=== PATIENT | female | born 1955 | race Caucasian/White ===

== ENCOUNTER 2020-02-23 09:05 | Outpatient (CLI) | payer OTHER, SELFPAY ==
--- NOTE | ~2020-02-23 | MM_ITS ---
EXAMINATION: MM screening iliana BI w irish HISTORY: Screening mammogram, family history of breast cancer in her mother and sister. TECHNIQUE: Craniocaudal and mediolateral oblique 3-D tomosynthesis images were obtained and synthetic 2-D images were generated. CAD analysis was submitted and interpreted. COMPARISON: 02/04/2019, 01/17/2018, 01/01/2017 BREAST PARENCHYMAL COMPOSITION: The breasts are heterogeneously dense, which may obscure small masses . FINDINGS: There is no evidence of suspicious mass, calcification, or architectural distortion to sugg est malignancy in either breast. There has been no suspicious interval change. IMPRESSION: 1. No mammographic evidence of malignancy. 2. Recommend routine screening mammography in one year. BI-RADS Category 1: Negative Reviewed, dictated and finalized at location A. ER'S LICENSE EXAMINER
== END 2020-02-23 09:06 | disposition home or self-care (01) ==
PROVIDERS: Visit Provider Obstetrics & Gynecology
DX: Z12.31 Encounter for screening mammogram for malignant neoplasm of breast (principal)
CPT/HCPCS: 77063; 77067

== ENCOUNTER 2021-05-03 08:12 | Outpatient (CLI) | payer MEDICARE, OTHER, SELFPAY ==
--- NOTE | ~2021-05-03 | MM_ITS ---
EXAMINATION: MM screening iliana BI w irish HISTORY: Screening mammogram TECHNIQUE: Craniocaudal and mediolateral oblique 3-D tomosynthesis images were obtained and synthetic 2-D images were generated. CAD analysis was submitted and interpreted. COMPARISON: 02/23/2020, 02/04/2019, 01/17/2018, 12/28/2016 bilateral screening mammogram examinations BREAST PARENCHYMAL COMPOSITION: The breasts are heterogeneously dense, which may obscure small masses . FINDINGS: There is no evidence of suspicious mass, calcification, or architectural distortion to sugg est malignancy in either breast. There has been no suspicious interval change. IMPRESSION: 1. No mammographic evidence of malignancy. 2. Recommend routine screening mammography in one year. BI-RADS Category 1: Negative Reviewed, dictated and finalized at location A. MATIC TOE LASTER
== END 2021-05-03 08:13 | disposition home or self-care (01) ==
LOC: ANHIMG 08:16
PROVIDERS: PCP Family Medicine; Visit Provider Obstetrics & Gynecology
DX: Z12.31 Encounter for screening mammogram for malignant neoplasm of breast (principal)
CPT/HCPCS: 77063; 77067

== ENCOUNTER 2021-05-09 00:05 | Day surgery (SDC) | payer MEDICARE, OTHER, SELFPAY ==
[2021-04-24 13:37] VITALS: BMI 23.8
[2021-05-09 06:20] VITALS: BP 111/69; PULSE 82; RESP 18; TEMP 36.6; O2SAT 100; BMI 24.3
[2021-05-09] MEDS: LACTATED RINGERS 1,000 ML 150 ML IV CONT (06:26)
--- NOTE | 2021-05-09 07:13 | P.PNAN_ITS ---
Anes - Initial Pre Proc Eval Procedure: Operation Date: 05/09/21 07:30 Proposed Procedures p Screening Colonoscopy - Phan Tyson MD Date/Time: 05/09/21 07:13 Surgeon: Phan Tyson MD Pre Op Diagnosis: neoplasm screening Patient Data Age: 66 Gender: F Height: 1.6 m Weight: 62.3 kg Last Vital Signs Temp 97.8 F 05/09/21 06:20 Pulse 82 05/09/21 06:20 Resp 18 05/09/21 06:20 BP 111/69 05/09/21 06:20 Pulse Ox 100 05/09/21 06:20 Allergies Allergy/AdvReac Type Severity Reaction Status Date / Time No Known Allergies Allergy Verified 05/09/21 06:18 Home Medications Medication Instructions Recorded Confirmed Type Lacto.acidophilus-Bif.animalis 1 cap PO DAILY 04/24/21 04/24/21 History [Daily Probiotic] cholecalciferol (vitamin D3) 25 mcg PO DAILY 04/24/21 04/24/21 History [Vitamin D3] rosuvastatin 10 mg PO DAILY 04/24/21 04/24/21 History Patient hx anesthesia problems: none Family hx anesthesia problems: none Results Review: All pre-operative results and documents have been reviewed as part of the pre-operative evaluation. [facility] Past Medical History Medical History (Updated 05/09/21 @ 07:14 by Earl Cr MD) Hyperlipidemia Family History Family History (Updated 10/07/15 @ 23:19 by DOCTOR UNKNOWN) Mother Hypertension Family history of lymphoma Family history of malignant neoplasm of breast in first degree relative Sibling Hypertension Family history of primary malignant neoplasm of liver Family history of malignant neoplasm of breast in first degree relative Other Cerebrovascular accident Family history of malignant neoplasm of male breast Social History Social History Smoking status: Never smoker Alcohol intake: current Drinks per week: 7 Alcohol use details: wine Living arrangements: with family Spiritual care concerns: No Anes - Eval Final PreProcedure Day of Procedure 05/09/21 07:13 Patient weight: normal Heart: regular rate and rhythm Lungs: clear to auscultation Airway: Mallampati scale class II Neurological: alert and oriented Last oral intake: >/= 8 hours ASA classification: II Emergent: no Anesthetic plan: proceed Anesthesia type and monitoring: general GIVS and standard monitoring Results Review: All pre-operative results and documents have been reviewed as part of the pre-operative evaluation. Informed Consent: The patient's anesthetic plan and its attendant risks and benefits were discussed with the patient/family/POA. Questions were solicited and answers provided to the satisfaction of the patient/family/POA.
--- NOTE | 2021-05-09 07:40 | WPDGICN ---
Assessment and Plan Assessment and plan (1) Encounter for screening colonoscopy: Code(s): Z12.11 - Encounter for screening for malignant neoplasm of colon Status: Acute Assessment and Plan: Patient presents for screening colonoscopy. Appears to be at average risk for colon polyps. Further recommendations will be given after endoscopy. GI Consult Note Consult date/time: 05/09/21 07:40 HPI: Cecile Rm is a 66 year old female Presents for screening colonoscopy. Her current weight appetite bowel movements are normal. She denies abdominal pain. She has had no bleeding. Patient's last colonoscopy was 10 years ago. Her family history is noncontributory. She presents today for neoplasia screening colonoscopy. Review of Systems Review of Systems: All systems reviewed & are unremarkable except as noted in HPI and below PMFSH Past Medical History Medical History (Updated 05/09/21 @ 07:41 by Phan Tyson MD) Hyperlipidemia Family History Family History (Updated 10/07/15 @ 23:19 by DOCTOR UNKNOWN) Mother Hypertension Family history of lymphoma Family history of malignant neoplasm of breast in first degree relative Sibling Hypertension Family history of primary malignant neoplasm of liver Family history of malignant neoplasm of breast in first degree relative Other Cerebrovascular accident Family history of malignant neoplasm of male breast Social History Social History Smoking status: Never smoker Alcohol intake: current Drinks per week: 7 Alcohol use details: wine Living arrangements: with family Spiritual care concerns: No Meds Home Medications and Allergies Home Medications Medication Instructions Recorded Confirmed Type Lacto.acidophilus-Bif.animalis 1 cap PO DAILY 04/24/21 04/24/21 History [Daily Probiotic] cholecalciferol (vitamin D3) 25 mcg PO DAILY 04/24/21 04/24/21 History [Vitamin D3] rosuvastatin 10 mg PO DAILY 04/24/21 04/24/21 History Allergies Allergy/AdvReac Type Severity Reaction Status Date / Time No Known Allergies Allergy Verified 05/09/21 06:18 Vital Signs Vital Signs - 24 hr 05/09/21 06:20 Temperature 97.8 F Pulse Rate 82 Respiratory Rate 18 Blood Pressure 111/69 Pulse Oximetry 100 Exam Narrative: Physical exam reveals patient to be alert. Vital signs stable. HEENT exam is unremarkable. Patient is anicteric. Lungs are clear to auscultation and percussion. Heart is without murmur or extra sounds. Abdominal exam bowel sounds are present soft nontender with no hepatosplenomegaly. Digital external rectal exam is normal.
[2021-05-09 07:44] VITALS: BP 98/61; PULSE 78; RESP 26; O2SAT 99
[2021-05-09 07:54] VITALS: BP 118/79; PULSE 76; RESP 13; O2SAT 100
[2021-05-09 08:04] VITALS: BP 128/86; PULSE 69; RESP 16; O2SAT 100
== END 2021-05-09 08:19 | disposition home or self-care (01) ==
PROVIDERS: PCP Family Medicine; Visit Provider Internal Medicine Gastroenterology
PROC: 0DJD8ZZ Inspection of Lower Intestinal Tract, Via Natural or Artificial Opening Endoscopic (ICD-10-PCS; CPT 45378; principal; 2021-05-09 07:30)
DX: Z12.11 Encounter for screening for malignant neoplasm of colon (principal); K63.5 Polyp of colon; K64.8 Other hemorrhoids; E78.5 Hyperlipidemia, unspecified
CPT/HCPCS: 45380; 88305; J2704; J7120

== ENCOUNTER 2022-01-25 11:09 | Outpatient (CLI) | payer MEDICARE, OTHER, SELFPAY ==
--- NOTE | ~2022-01-25 | MMUS_ITS ---
EXAMINATION: MM diagnostic iliana LT w irish, US breast LT limited HISTORY: Palpable left breast abnormality. TECHNIQUE: Additional 3-D tomosynthesis images of the left breast were performed and synthetic 2-D im ages were generated. CAD analysis was submitted and interpreted. High resolution Limited left breast ultrasound was performed. COMPARISON: Comparison to multiple prior studies sequentially, with oldest reviewed study dated 12/09. BREAST PARENCHYMAL COMPOSITION: Breast composed of scattered areas of fibroglandular density FINDINGS: MAMMOGRAPHIC FINDINGS: There are no suspicious masses, calcifications or architectural distortion in the left breast to sugg est malignancy. No significant interval change. ULTRASOUND: Limited left breast ultrasound directed to the area of palpable concern: No suspicious solid or cysti c masses are identified. IMPRESSION: 1. No evidence for malignancy in the left breast. 2. Routine yearly screening mammogram and regular clinical breast examination are recommended. BI-RADS Category 1: Negative Reviewed, dictated and finalized at location A. ERECTOR APPRENTICE IMPRESSION: 1. No evidence for malignancy in the left breast. 2. Routine yearly screening mammogram and regular clinical breast examination a re recommended. BI-RADS Category 1: Negative
== END 2022-01-25 11:10 | disposition home or self-care (01) ==
PROVIDERS: PCP Obstetrics & Gynecology; Visit Provider Obstetrics & Gynecology
DX: N60.02 Solitary cyst of left breast (principal)
CPT/HCPCS: 76642; 77061; 77065; G0279

== ENCOUNTER 2022-01-31 07:43 | Outpatient (CLI) | payer MEDICARE, OTHER, SELFPAY ==
--- NOTE | ~2022-01-31 | DEXA_ITS ---
Bone Density Report Name: MALI VILLEGAS Age: 66 Sex: Female Ethnicity: White Date of : 1955 Indication: osteopenia; prior fracture; postmenopausal Referring Provider: CHOCO, MEGGAN Whelan Study: Bone densitometry was performed. Exam Date: January 31, 2022 Accession number: [id number] Bone Density: Region BMD T-score Z-score Classification AP Spine(L1-L4) 0.874 -1.6 0.2 Osteopenia Femoral Neck (Left) 0.680 -1.5 0.0 Osteopenia Total Hip (Left) 0.755 -1.5 -0.3 Osteopenia Femoral Neck (Right) 0.593 -2.3 -0.8 Osteopenia Total Hip (Right) 0.762 -1.5 -0.2 Osteopenia Total Hip Mean 0.759 -1.5 -0.3 Osteopenia World Health Organization criteria for BMD impression classify patients as: Normal (T-score at or above -1.0), Osteopenia (T-score between -1.0 and -2.5), or Osteoporosis (T-score at or below -2.5). 10-year Fracture Risk(1): Major Osteoporotic Fracture 20% Hip Fracture 3.6% Reported Risk Factors: [place] (), Neck BMD=0.593, BMI=25.0, previous fracture (1) FRAX(R) Version 3.08. Fracture probability calculated for an untreated patient. Fracture probability may be lower if the patient has received treatment. Previous Exams: Region Exam Age BMD T-score BMD Change BMD Change Date g/cm2 vs Baseline vs Previous AP Spine (L1-L4) 01/31/2022 66 0.874 -1.6 -0.058 (-6.3%) -0.058 (-6.3%) 02/07/2016 60 0.932 -1.0 Total Hip(Left) 01/31/2022 66 0.755 -1.5 -0.022 (-2.9%) -0.022 (-2.9%) 02/07/2016 60 0.777 -1.3 Total Hip(Right) 01/31/2022 66 0.762 -1.5 -0.033 (-4.2%) -0.033 (-4.2%) 02/07/2016 60 0.795 -1.2 *Denotes significance at 95% confidence level, LSC for AP Spine = 0.022 g/cm2, LSC for Total Hip = 0.027 g/cm2 Clinical Information Provided by Patient: Has had a low trauma fracture Has used the following medications: Vitamin D Patient maximum height was 63 Menopause Age: 51 Does not regularly consume dairy products Onset of menses at age 12 Number of children 2 Impression: The patient has low bone mass, based on the Right Femoral Neck T-score. The patient has an estimated ten-year risk of hip fracture of 3.6% and an estimated ten-year risk of major fracture of 20%, based on the WHO FRAX algorithm. The patient has risk factors, including: previous fracture. The BMD for the AP Spine (L1-L4) decreased, changing by -6.3% since the last DXA exam. The BMD for the Total Hip(Right) decreased, changing by -4
== END 2022-01-31 07:44 | disposition home or self-care (01) ==
PROVIDERS: PCP Obstetrics & Gynecology; Visit Provider Family Medicine
DX: Z78.0 Asymptomatic menopausal state (principal); M85.89 Other specified disorders of bone density and structure, multiple sites
CPT/HCPCS: 77080

== ENCOUNTER 2022-07-06 07:49 | Outpatient (CLI) | payer MEDICARE, SELFPAY ==
--- NOTE | ~2022-07-06 | MM_ITS ---
EXAMINATION: MM screening iliana BI w irish HISTORY: Screening mammogram TECHNIQUE: Craniocaudal and mediolateral oblique 3-D tomosynthesis images were obtained and synthetic 2-D images were generated. CAD analysis was submitted and interpreted. COMPARISON: 01/25/2022 diagnostic left mammogram and limited left breast ultrasound examination 05/03/2021, 02/23/2020 bilateral screening mammogram examinations BREAST PARENCHYMAL COMPOSITION: The breasts are heterogeneously dense, which may obscure small masses . FINDINGS: There is no evidence of suspicious mass, calcification, or architectural distortion to sugg est malignancy in either breast. There has been no suspicious interval change. IMPRESSION: 1. No mammographic evidence of malignancy. 2. Recommend routine screening mammography in one year. BI-RADS Category 1: Negative Reviewed, dictated and finalized at location A.
== END 2022-07-06 07:50 | disposition home or self-care (01) ==
LOC: ANHIMG 07:53
PROVIDERS: Visit Provider Obstetrics & Gynecology
DX: Z12.31 Encounter for screening mammogram for malignant neoplasm of breast (principal)
CPT/HCPCS: 77063; 77067

== ENCOUNTER 2023-07-08 07:40 | Outpatient (CLI) | payer MEDICARE, SELFPAY ==
--- NOTE | ~2023-07-08 | MM_ITS ---
EXAMINATION: MM screening [facility] BI w irish HISTORY: Screening TECHNIQUE: Craniocaudal and mediolateral oblique 3-D tomosynthesis images were obtained and synthetic 2-D images were generated. CAD analysis was submitted and interpreted. COMPARISON: Comparison to multiple prior studies sequentially, with oldest reviewed study dated 11/2017. BREAST PARENCHYMAL COMPOSITION: There are scattered areas of fibroglandular density. FINDINGS: There is no evidence of suspicious mass, calcification, or architectural distortion to sugg est malignancy in either breast. There has been no suspicious interval change. IMPRESSION: 1. No mammographic evidence of malignancy. 2. Recommend routine screening mammography in one year. BI-RADS Category 1: Negative Reviewed, dictated and finalized at location B.
== END 2023-07-08 07:41 | disposition home or self-care (01) ==
PROVIDERS: Visit Provider Obstetrics & Gynecology
DX: Z12.31 Encounter for screening mammogram for malignant neoplasm of breast (principal)
CPT/HCPCS: 77063; 77067

== ENCOUNTER 2023-10-23 12:47 | Outpatient (CLI) | payer MEDICARE, SELFPAY ==
--- NOTE | ~2023-10-23 | US_ITS ---
EXAMINATION: US pelvic complete w TV DATE: 10/23/2023 13:09 INDICATION: Postmenopausal bleeding. TECHNIQUE: Multiple transabdominal and transvaginal sonographic images of the pelvis were obtained. COMPARISON: None. FINDINGS: TRANSABDOMINAL ULTRASOUND: The uterus measures 6.3 x 3.9 x 3.6 cm. There is no free fluid in the pelvis. TRANSVAGINAL ULTRASOUND: The endometrial complex measures 2 mm in thickness. The ovaries are not visualized. IMPRESSION: 1. Normal endometrial complex. Reviewed, dictated and finalized at location A.
== END 2023-10-23 12:48 ==
LOC: GOSHIMG 12:48
PROVIDERS: Visit Provider Obstetrics & Gynecology
DX: N95.0 Postmenopausal bleeding (principal)
CPT/HCPCS: 76830; 76856

== ENCOUNTER 2023-12-11 12:45 | Outpatient (CLI) | payer MEDICARE, SELFPAY ==
[2023-12-11 13:03] LABS: Hematocrit 39.6 % (37.0-47.0); Hemoglobin 12.7 g/dL (12.0-15.0); Mean Corpuscular HGB Conc 32.1 g/dl (32-36); Mean Corpuscular Hemoglobin 31.1 pg (26-34); Mean Corpuscular Volume 96.8 fl (80-100); Mean Platelet Volume 8.8 fl (7.4-10.4); Platelet Count Result 260 k/mm3 (150-375); Red Blood Count 4.09 M/mm3 (4.2-5.4); Red Cell Distribution Width 12.9 % (11.5-14.5); White Blood Count 6.9 K/mm3 (4.5-10.0)
== END 2023-12-11 12:46 | disposition home or self-care (01) ==
LOC: ANHSURGERY 12:50
PROVIDERS: PCP Family Medicine; Visit Provider Obstetrics & Gynecology
DX: N95.0 Postmenopausal bleeding (principal)
CPT/HCPCS: 36415; 85027

== ENCOUNTER 2023-12-13 04:06 | Day surgery (SDC) | payer MEDICARE, SELFPAY ==
--- NOTE | 2023-12-11 11:04 | PC.NURSE ---
Report to the Outpatient Waiting Room, entrance under the green pavilion located off [facility], at time 10 AM on date 12/13/23 . Planned Procedure Time: _1200 NOON .? Time changes happen often and if your time is changed the preop area will call you the afternoon before. - You and your visitor will be asked to self-screen and do not enter if you have any COVID symptoms. Please call surgeon if you need to reschedule. - A mask is optional within the hospital at this time. Patients may have clear liquids (water, carbonated beverages, clear teas, apple juice) until 3 hours prior to surgery( 9AM) with a maximum of 20 ounces. - No food from midnight until time of surgery and no smoking - Infants may have breast milk until 4 hours before surgery, formula 6 hours prior to surgery. - Children will be allowed to drink immediately following surgery.? If applicable, please bring a bottle or sippy cup to assist with drinking. Juice, water, soda, and popsicles are readily available.? For infants on formula, please bring formula the day of surgery.? Pacifiers are allowed. Take only the following medications with a SIP of water on the morning of surgery: ____NONE DO NOT STOP ANY OF YOUR OTHER PRESCRIPTION MEDICATIONS PRIOR TO SURGERY EXCEPT THE FOLLOWING Medications to discontinue per physician ___HOLD ALL VITAMINS AND SUPPLEMENTS 3 DAYS PRE OP.LAST DOSE 12/11/23 - Please no make-up, nail brazilian, hairspray, perfume, deodorant, or body powder the day of surgery.? No jewelry (including any body piercings) or valuables the day of surgery, leave them at home.? Please take a shower or bath the night before, or the morning of, surgery with an antibacterial soap.? Wear comfortable, loose fitting clothing.? Children are encouraged to wear pajamas. - Jewelry must be removed prior to entering the operating room.? Rings and piercings that are not removed may be cut off. - The hospital will not accept responsibility for valuables.? - Please leave all valuables, including medications, at home the day of surgery. If you are going home after surgery, a licensed solo truck driver must drive you home.? - NO public transportation without another adult if you receive anesthesia. - We recommend that an adult stay with you for 24 hours following discharge. - We also recommend that you do not drive, make important decision, drink alcoholic beverages, or take any drugs that were not prescribed by your health care provider for at least 24 hours after your discharge time. For Pediatric surgeries, we recommend two adults accompany the child home. Follow any additional instructions given to you from your surgeon. Telephone instructions given to __PATIENT and asked if any additional questions and then verbalized understanding. Patient advised to call surgeon office or pre surgery nurse liaison [phone] if any additional questions.
[2023-12-11 11:13] VITALS: BMI 23.2
--- NOTE | 2023-12-13 08:00 | PM.IMHP ---
H&P: HPI History of Present Illness Date/Time: 12/13/23 08:00 68-year-old female presents for evaluation of postmenopausal bleeding. She has been postmenopausal for years without any issues and had some bleeding over the last 2 months. Evaluation consisted of exam as well as ultrasound. Small cervical lesion was noted that was not bleeding, and ultrasound showed no fibroids endometrial thickness 2mm. she has no history of abnormal Pap smears in the past. As she has continued to have intermittent bleeding we will proceed with removal of this lesion as well as hysteroscopic exam with endometrial biopsy. Chief Complaint: Postmenopausal bleeding Review of Systems Review of Systems: All systems reviewed & are unremarkable except as noted in HPI and below PMFSH Past Medical History Medical History Hyperlipidemia Osteopenia Ovarian cyst Surgical History Surgical History H/O hemorrhoidectomy H/O tubal ligation (~1990) History of tonsillectomy (~1962) Family History Family History Mother Hypertension Family history of lymphoma Family history of malignant neoplasm of breast in first degree relative Sibling Hypertension Family history of primary malignant neoplasm of liver Family history of malignant neoplasm of breast in first degree relative Other Cerebrovascular accident Family history of malignant neoplasm of male breast Social History Social History Smoking status: Never smoker Alcohol intake: current Drinks per week: 7 Alcohol use details: wine Substance use: never Substance use type: does not use Do You Feel Safe in your Home?: Yes Lack of Transportation: No Lack of Food: Never True Current Housing: I Have Housing Concerned About Future Housing: No Difficulty Paying Gas/Electric Bills: No Difficulty Paying for Meds: No Currently Unemployed: No Education: High School Diploma/GED Difficulty w/ Childcare or Family Care: No Living arrangements: with family Additional living arrangements comments: Occupation/Education: retired Gender identity (if verbalized by the patient): Female Sexual Orientation (if Verbalized by the Patient): Straight or Heterosexual Spiritual care concerns: No Meds Home Medications and Allergies Home Medications Medication Instructions Recorded Confirmed Type Lactobacillus 1 cap PO DAILY 04/24/21 12/11/23 History acidophilus-Bifidobac.animalis 2.5 billion cell capsule (Daily Probiotic) multivitamin (Daily Multi-Vitamin 1 tablet PO DAILY 01/10/22 12/11/23 History tablet) calcium 600 mg (as 1 tablet PO DAILY 12/11/23 12/11/23 History carbonate)-vitamin D3 10 mcg (400 unit) tablet (Calcium 600 + D(3)) rosuvastatin 20 mg tablet 20 mg PO DAILY 12/11/23 12/11/23 History Allergies Allergy/AdvReac Type Severity Reaction Status Date / Time No Known Allergies Allergy Verified 12/11/23 10:58 Exam Const: General: cooperative and healthy appearing Resp: Effort & Inspection: normal respiratory effort Auscultation: clear to auscultation bilaterally Cardio: Rate: regular rate Rhythm: regular rhythm GI: Inspection: normal to inspection Auscultation: normal bowel sounds : External Female Exam: normal external appearance Speculum Exam - Vagina: normal appearance of the vagina Speculum Exam - Cervix: Cervical lesion present ( small lesion at 12:00 p.m.) Bimanual exam- vagina & uterus: normal bimanual exam Bimanual Exam- Adnexa, other: normal adnexae Assessment and Plan Assessment and plan (1) Postmenopausal bleeding: Code(s): N95.0 - Postmenopausal bleeding Status: Acute Assessment and Plan: 1. Hysteroscopy uterine curettings 2. Removal of cervic
--- NOTE | 2023-12-13 08:06 | WPDHPUPDATE1 ---
History and Physical Update Update Date/Time: 12/13/23 08:06 History and Physical has been reviewed, including an updated exam of the patient. There are NO changes in the patient's condition. Risks, benefits, and alternatives have been discussed and questions answered. Patient agrees to proceed with procedure.
[2023-12-13] MEDS: LACTATED RINGERS 1,000 ML 30 ML IV CONT (10:30)
[2023-12-13 10:45] VITALS: BP 116/67; PULSE 67; RESP 16; TEMP 36.6; O2SAT 100
--- NOTE | 2023-12-13 10:45 | WPDANESEPPF ---
Anes - Initial Pre Proc Eval Procedure: Operation Date: 12/13/23 12:00 Proposed Procedures p Hysteroscopy Dilation and Curettage, - Jerrod Foster MD s Loop Electrical Excision Procedure - Jerrod Foster MD Date/Time: 12/13/23 10:45 Surgeon: Jerrod Foster MD Pre Op Diagnosis: post menopausal bleeding, cervical dysplasia Patient Data Age: 68 Gender: F Height: 1.6 m Weight: 59.45 kg Allergies Allergy/AdvReac Type Severity Reaction Status Date / Time No Known Allergies Allergy Verified 12/11/23 10:58 Home Medications Medication Instructions Recorded Confirmed Type Lactobacillus 1 cap PO DAILY 04/24/21 12/11/23 History acidophilus-Bifidobac.animalis 2.5 billion cell capsule (Daily Probiotic) multivitamin (Daily Multi-Vitamin 1 tablet PO DAILY 01/10/22 12/11/23 History tablet) calcium 600 mg (as 1 tablet PO DAILY 12/11/23 12/11/23 History carbonate)-vitamin D3 10 mcg (400 unit) tablet (Calcium 600 + D(3)) rosuvastatin 20 mg tablet 20 mg PO DAILY 12/11/23 12/11/23 History Patient hx anesthesia problems: none Family hx anesthesia problems: none Results Review: All pre-operative results and documents have been reviewed as part of the pre-operative evaluation. [facility] Past Medical History Medical History Hyperlipidemia Osteopenia Ovarian cyst Surgical History Surgical History H/O hemorrhoidectomy H/O tubal ligation (~1990) History of tonsillectomy (~1962) Family History Family History Mother Hypertension Family history of lymphoma Family history of malignant neoplasm of breast in first degree relative Sibling Hypertension Family history of primary malignant neoplasm of liver Family history of malignant neoplasm of breast in first degree relative Other Cerebrovascular accident Family history of malignant neoplasm of male breast Social History Social History Smoking status: Never smoker Alcohol intake: current Drinks per week: 7 Alcohol use details: wine Substance use: never Substance use type: does not use Do You Feel Safe in your Home?: Yes Lack of Transportation: No Lack of Food: Never True Current Housing: I Have Housing Concerned About Future Housing: No Difficulty Paying Gas/Electric Bills: No Difficulty Paying for Meds: No Currently Unemployed: No Education: High School Diploma/GED Difficulty w/ Childcare or Family Care: No Living arrangements: with family Additional living arrangements comments: Occupation/Education: retired Gender identity (if verbalized by the patient): Female Sexual Orientation (if Verbalized by the Patient): Straight or Heterosexual Spiritual care concerns: No Anes - Eval Final PreProcedure Day of Procedure 12/13/23 10:45 Patient weight: normal Heart: regular rate and rhythm Lungs: clear to auscultation Airway: Mallampati scale class II Neurological: alert and oriented Last oral intake: >/= 8 hours ASA classification: II Emergent: no Anesthetic plan: proceed Anesthesia type and monitoring: general GIVS and standard monitoring Results Review: All pre-operative results and documents have been reviewed as part of the pre-operative evaluation. Hyperlipidemia, active pickleball player, no cp or sob. Informed Consent: The patient's anesthetic plan and its attendant risks and benefits were discussed with the patient/family/POA. Questions were solicited and answers provided to the satisfaction of the patient/family/POA.
[2023-12-13] MEDS: ACETAMINOPHEN 500 MG TABLET 1000 MG PO (10:48)
[2023-12-13] MEDS: ceFAZolin 2 GM/D5W 50 ML 2 GM/50 ML BAG IVPB (10:50)
[2023-12-13 11:25] VITALS: BP 105/64; PULSE 68; RESP 16; O2SAT 100
--- NOTE | 2023-12-13 11:32 | P.OP_ITS ---
Procedure Note - Detailed Date of Procedure 12/13/23 Pre-op Diagnosis 1. Postmenopausal bleeding 2. Cervical lesion Post-op Diagnosis Same Procedure Performed 1. Hysteroscopy with uterine curettings 2. LEEP conization Surgeon Jerrod Foster MD Anesthesia MAC Findings Small cervical lesion is noted. Hysteroscopic exam revealed adhesions, no polyps or fibroids. Atrophy noted. Description of Procedure Patient prepped and draped usual manner for this procedure. Cervix was dilated allow the hysteroscope to be placed which then did finding the findings as listed above. Shavings were obtained as a volunteer patient representative sample of all 4 quadrants. Attention was then placed to the cervix and appropriately sized LEEP instrument was obtained the transformation zone was removed as well as a small polypoid lesion on the cervix. Bed of the biopsy site was then cauterized, there was no bleeding. Patient was then sent to recovery room in stable condition. Estimated Blood Loss 10 Drains No Packing No Pathology Yes Complications No immediate complications Condition Stable Disposition PACU [facility] Billing Surgery - Charge Forward: Surgery Billing
[2023-12-13 11:55] VITALS: BP 106/66; PULSE 63; RESP 16; O2SAT 100
== END 2023-12-13 12:15 | disposition home or self-care (01) ==
PROVIDERS: PCP Family Medicine; Visit Provider Obstetrics & Gynecology
PROC: 0U5B8ZZ Destruction of Endometrium, Via Natural or Artificial Opening Endoscopic (ICD-10-PCS; CPT 58563; principal; 2023-12-13 12:00)
PROC: 0UBC7ZZ Excision of Cervix, Via Natural or Artificial Opening (ICD-10-PCS; CPT 57522; 2023-12-13 12:00)
DX: N72 Inflammatory disease of cervix uteri (principal); N88.8 Other specified noninflammatory disorders of cervix uteri; E78.5 Hyperlipidemia, unspecified
CPT/HCPCS: 57522; 58558; 88305; 88307; A9270; J0690; J2003; J2250; J2704; J3010; J7120

== ENCOUNTER 2024-08-24 07:38 | Outpatient (CLI) | payer MEDICARE, SELFPAY ==
--- NOTE | ~2024-08-24 | MM_ITS ---
EXAMINATION: MM screening iliana BI w irish HISTORY: Screening TECHNIQUE: Craniocaudal and mediolateral oblique 3-D tomosynthesis images were obtained and synthetic 2-D images were generated. CAD analysis was submitted and interpreted. COMPARISON: Comparison to multiple prior studies sequentially, with oldest reviewed study dated 01/10. BREAST PARENCHYMAL COMPOSITION: Not dense: There are scattered areas of fibroglandular density. FINDINGS: There is no evidence of suspicious mass, calcification, or architectural distortion to sugg est malignancy in either breast. There has been no suspicious interval change. IMPRESSION: 1. No mammographic evidence of malignancy. 2. Recommend routine screening mammography in one year. BI-RADS Category 1: Negative Reviewed, dictated and finalized at location A.
--- OUTSIDE RECORDS SUMMARY | 2024-08-24 07:42 | XMS_ITS | Patient Health Record ---
Author Organization 1 OF [facility] Address [address] [place] [address] Care Team Providers Care Single End Sewer Name Role Phone Enrique Romeo MD Primary Care Provider Lilia Bernard Unavailable [phone] Reason For Referral No Information Medications Medication SIG (Take, Route, Frequency, Duration) Notes Start Date End Date Status Crestor Active Social History Tobacco Use: Social History Observation Description Date Details (start date - stop date) Never Smoker NA - NA Tobacco Use/Smoking Question Answer Notes Are you a nonsmoker Problems Problem Type SNOMED Code ICD Code Onset Dates Problem Status W/U Status Risk Notes Problem [id number] Hammertoe of right foot (M20.41) Active confirmed Plan Of Treatment No Information Insurance Providers Payer Name Payer Address Payer Phone Subscriber Number Group Number Insured Name Patient Relationship to Insured Coverage Start Date Coverage End Date [employer] [address] [place] [address] [id number] [phone] Buddy Rm Spouse - patient is the spouse of the insured Medical (General) History Medical History History ICD Code High Cholesterol Surgical History Surgery Date(Month/Year)
--- OUTSIDE RECORDS SUMMARY | 2024-08-24 07:42 | XMS_ITS | Referral Summary ---
Author Organization [facility] Healthcare ELISA Care Team Providers Care Charrer Name Role Phone Enrique Romeo MD Unavailable [phone] 1 Allergies No known active allergies Medications rosuvastatin (CRESTOR) 10 mg tabletIndication s:hyperlipidemia Take 1 tablet (10 mg total) by mouth daily 90 tablet 2 04/23/2022 Active ibandronate (BONIVA) 150 mg tablet Take 1 tablet (150 mg total) by mouth every 30 (thirty) days Take in AM with glass of water prior to food, don't lie down for 30 minutes. 3 tablet 4 05/08/2022 Active Active Problems Problem Noted Date Diagnosed Date Pure hypercholesterolemia 06/07/2018 Assessment & Plan (06/07/2018 10:44 AM CDT): Cholesterol lab is reviewed and looks good and no changes needed. Tolerating the crestor very well. Immunizations Immunization Administration Dates Next Due Influenza, Quadrivalent, Spl it, Preservative Free, Intramuscular 12/13/2020,12/26/2019 Pfizer SARS-CoV-2 Monovalent Vaccination (12+ Yrs) PURPLE 06/09/2020,05/19/2020 Pneumococcal Conjugate PCV 13 07/24/2017 ZOSTER Recombinant 12/26/2019,09/21/2019 Social History Tobacco Use Types Packs/Day Years Used Date Smoking Tobacco: Never Smokeless Tobacco: Never Tobacco Cessation:Counseling Given: Not Answered Alcohol Use Standard Drinks/Week Comments Yes 3 (1 standard drink = 0.6 oz pur e alcohol) socially AUDIT-C Answer Date Recorded Q1: How often do you have a drink containing alc ohol? 2-3 times a week 11/28/2021 Q2: How many drinks containi ng alcohol do you have on a typical day when you are drinking? 1 or 2 11/28/2021 Q3: How often do you have si x or more drinks on one occasion? Never 11/28/2021 PHQ-2 Answer Date Recorded PHQ-2 Total Score (If total score is 3 or more points, staff should administer the PHQ-9) 0 11/28/2021 Personal Safety Answer Date Recorded Getting School Help Needed Not on file 03/09 Comments No Sex and Gender Information Value Date Recorded Sex Assigned at Not on file Legal Sex Female 7:10 AM PEDORTHIST Gender Identity Female 09/02/2019 7:38 AM CDT Sexual Orientation Straight 09/02/2019 7: 38 AM CDT Last Filed Vital Signs Vital Sign Reading Time Taken Comments Blood Pressure 122/86 11/28/2021 7:31 AM CDT Pulse 75 11/28/2021 7:31 AM CDT Temperature 36.3 C (97.4 F) 11/28/2021 7:31 AM CDT Respiratory Rate 18 11/28/2021 7:31 AM CDT Oxygen Saturation 97% 11/28/2021 7:31 AM CDT Inhaled Oxygen Concentration - - Weight 62.6 kg (138 lb) 11/28/2021 7:31 AM CDT Height 160 cm (5' 2.99) 11/28/2021 7:31 AM CDT Body Mass Index 24.45 11/28/2021 7:31 AM CDT Plan of Treatment Not on file Procedures Procedure Name Priority Date/Time Associated Diagnosis Comments COLONOSCOPY Routine 05/09/2021 HM MAMMOGRAPHY Routine 05/03/2021 from Last 3 Months or Most Recently Relevant to Health Maintenance Results * Colonoscopy (05/09/2021) Anatomical Region Laterality Modality Other us Historical Provider ENDOSCOPY PROCEDURES Agustina l Result * HM MAMMOGRAPHY (05/03/2021) us Historical Provider HEALTH MAINTENANCE Final Result from Last 3 Months or Most Recently Relevant to Health Maintenance Insurance MEDICARE [employer] [facility] Advance Directives For more information, please contact: [phone] Documents on File Type Date Recorded 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
--- OUTSIDE RECORDS SUMMARY | 2024-08-24 07:42 | XMS_ITS | Data Portability ---
[facility] Address [address] [place] [address] Assessment No assessment recorded. Plan of Treatment Reminders Order Date Submit Date Provider Last Modified By Organization Details Last Modified Time Details Appointments ANY 15 2024 09:00A Aida Romeo MD Not available Not available Not available Lab vitamin D, 25-hydrox y, total, serum 2024 025 [employer] [facility], [address], [place], [address], 07/04/2024 05:23:32 lipid panel, serum 2024 025 [employer] [facility], [address], [place], [address], 07/04/2024 05:23:29 CMP, serum or plasma 2024 025 [employer] [facility], [address], [place], [address], 07/04/2024 05:23:31 Referral None recorded. Procedures None recorded. Surgeries None recorded. Imaging None recorded. Medication Orders Prolia 60 mg/mL subcutane ous syringe 2023 024 [email or web address] [id number], [address] [place], [address], 12/20/2023 10:23:17 Prolia 60 mg/mL subcutane ous syringe 2023 024 [email or web address] [id number], [address] [place], [address], 07/03/2023 11:11:10 triamcino lone acetonide 40 mg/mL suspensio n for injection 2023 024 [email or web address] Not available 12/09/2023 11:10:18 Prolia 60 mg/mL subcutane ous syringe 2023 024 [email or web address] [id number], [address] [place], [address], 06/10/2023 11:08:57 Patient TargetsNo targets recorded. Patient InstructionsNo instructions recorded. Reason for Referral None Reported. Results Created Date Observation Date Name Description Value Unit Range Abnormal Flag Note LastModifiedBy Organization Detail LastModifiedTime 05/24/1905/24/2023 LIPID PANEL , STAND JAZMINE cholesterol, total 217 mg/dL <200 high Not Available [facility] [address] [place], [address], 05/24/2023 18:22:14 05/24/1905/24/2023 LIPID PANEL , STAND JAZMINE HDL cholesterol 76 mg/dL > or = 50 normal Not Available [facility] [address] [address] [place], [address], 05/24/2023 18:22:14 05/24/1905/24/2023 LIPID PANEL , STAND JAZMINE triglyceride s 92 mg/dL <150 normal Not Available [facility] [address] [address] [place], [address], 05/24/2023 18:22:14 05/24/1905/24/2023 LIPID PANEL , STAND JAZMINE LDL-choleste rol 121 mg/dL _(lenin c) high Refer ence range : <100 Meaghan able range <100 mg/dL for prima ry preve ntion ; <70 mg/dL for patie nts with CHD or diabe tic patie nts with > or = 2 CHD risk facto rs. LDL-C is now calcu lated using the [facility] kins calcu elroysue n, which is a valid ated novel maxwell vargas than the Fried anastasia equat ion in the estim ation of LDL-C . Alma ace SS et al. MELISSA. 2013; 310(1 9): 2061- 2068 (http ://ed ucati on.Qu Sofi Agentrun. com/f aq/FA Q164) Not Available [facility] [address] [address] [place], [address], 05/24/2023 18:22:14 05/24/19 24 05/24/2023 LIPID PANEL , STAND JAZMINE chol/HDLC ratio 2.9 (calc ) <5.0 normal Not Available [facility] [address] [address] [place], [address], 05/24/2023 18:22:14 05/24/19 24 05/24/2023 LIPID PANEL , STAND JAZMINE non HDL cholesterol 141 mg/dL _(lenin c) <130 high For patie nts with diabe prakash plus 1 major ASCVD risk facto r, treat ing to a non-H DL-C goal of <100 mg/dL (LDL- C of <70 mg/dL ) is consi jeannine a ioana aguilar optio n. Not Available [facility] [address] [address] [place], [address], 05/24/2023 18:22:14 11/27/19 24 11/28/2023 LIPID PANEL , STAND JAZMINE cholesterol, total 225 mg/dL <200 high Not Available [facility] [address] [address] [place], [address], 11/28/2023 03:10:23 11/27/19 24 11/28/2023 LIPID PANEL , STAND JAZMINE HDL cholesterol 81 mg/dL > or = 50 normal Not Available [facility] [address] [address] [place], [address], 11/28/2023 03:10:23 11/27/19 24 11/28/2023 LIPID PANEL , STAND JAZMINE triglyceride s 80 mg/dL <150 normal Not Available [address], [address], 11/28/2023 03:10:23 11/27/19 24 11/28/2023 LIPID PANEL , STAND JAZMINE LDL-choleste rol 127 mg/dL _(lenin c) high Refer ence range : <100 Meaghan able range <100 mg/dL for prima ry preve ntion ; <70 mg/dL for patie nts with CHD or diabe tic patie nts with > or = 2 CHD risk facto rs. LDL-C is now calcu lated using the Alma n-[facility] kins calcu latsue n, which is a valid ated novel metho d provi ding amrita r accur acy than the Fried anastasia equat ion in the estim ation of LDL-C . Alma ace SS et al. MELISSA. 2013; 310(1 9): 2061- 2068 (http ://ed ucati on.Qu marciBIOSAFE. com/f aq/FA Q164) Not Available [address], [address], 11/28/2023 03:10:23 11/27/1911/28/2023 LIPID PANEL , STAND JAZMINE chol/HDLC ratio 2.8 (calc ) <5.0 normal Not Available [address], [address], 11/28/2023 03:10:23 11/27/1911/28/2023 LIPID PANEL , STAND JAZMINE non HDL cholesterol 144 mg/dL _(lenin c) <130 high For patie nts with diabe prakash plus 1 major ASCVD risk facto r, treat ing to a non-H DL-C goal of <100 mg/dL (LDL- C of <70 mg/dL ) is consi dered a thera peuti c optio n. Not Available [address] [place], [address], 11/28/2023 03:10:23 11/27/19 24 11/28/2023 COMPR EHENS NICOLE METAB OLIC PANEL glucose 92 mg/dL 65-99 normal Fasti ng refer ence inter yvette Not Available [address], [address], 11/28/2023 03:10:24 11/27/19 24 11/28/2023 COMPR EHENS NICOLE METAB OLIC PANEL urea nitrogen (BUN) 13 mg/dL 7-25 normal Not Available [address], [address], 11/28/2023 03:10:24 11/27/19 24 11/28/2023 COMPR EHENS NICOLE METAB OLIC PANEL creatinine 0.57 mg/dL 0.50-1 .05 normal Not Available [address], [address], 11/28/2023 03:10:24 11/27/19 24 11/28/2023 COMPR EHENS NICOLE METAB OLIC PANEL eGFR 100 mL/mi n/1.7 3m2 > or = 60 normal Not Available [address], [address], 11/28/2023 03:10:24 11/27/19 24 11/28/2023 COMPR EHENS NICOLE METAB OLIC PANEL BUN/creatini ne ratio SEE NOTE: (calc ) 6-22 Not Repor thom: BUN and Creat inine are withi n refer ence range . Not Available [address], [address], 11/28/2023 03:10:24 11/27/19 24 11/28/2023 COMPR EHENS NICOLE METAB OLIC PANEL sodium 141 mmol/ L 135-14 6 normal Not Available [address], [address], 11/28/2023 03:10:24 11/27/19 24 11/28/2023 COMPR EHENS NICOLE METAB OLIC PANEL potassium 4.3 mmol/ L 3.5-5. 3 normal Not Available [address], [address], 11/28/2023 03:10:24 11/27/19 24 11/28/2023 COMPR EHENS NICOLE METAB OLIC PANEL chloride 103 mmol/ L 98-110 normal Not Available [address], [address], 11/28/2023 03:10:24 11/27/1911/28/2023 COMPR EHENS NICOLE METAB OLIC PANEL carbon dioxide 31 mmol/ L 20-32 normal Not Available [address], [address], 11/28/2023 03:10:24 11/27/19 24 11/28/2023 COMPR EHENS NICOLE METAB OLIC PANEL calcium 9.0 mg/dL 8.6-10 .4 normal Not Available [address], [address], 11/28/2023 03:10:24 11/27/19 24 11/28/2023 COMPR EHENS NICOLE METAB OLIC PANEL protein, total 6.3 g/dL 6.1-8. 1 normal Not Available [address], [address], 11/28/2023 03:10:24 11/27/1911/28/2023 COMPR EHENS NICOLE METAB OLIC PANEL albumin 4.5 g/dL 3.6-5. 1 normal Not Available [address], [address], 11/28/2023 03:10:24 11/27/19 24 11/28/2023 COMPR EHENS NICOLE METAB OLIC PANEL globulin 1.8 g/dL_ (calc ) 1.9-3. 7 low Not Available [address], [address], 11/28/2023 03:10:24 11/27/19 24 11/28/2023 COMPR EHENS NICOLE METAB OLIC PANEL albumin/glob ulin ratio 2.5 (calc ) 1.0-2. 5 normal Not Available [address], [address], 11/28/2023 03:10:24 11/27/19 24 11/28/2023 COMPR EHENS NICOLE METAB OLIC PANEL bilirubin, total 1.2 mg/dL 0.2-1. 2 normal Not Available [address], [address], 11/28/2023 03:10:24 11/27/19 24 11/28/2023 COMPR EHENS NICOLE METAB OLIC PANEL alkaline phosphatase 35 U/L 37-153 low Not Available [address], [address], 11/28/2023 03:10:24 11/27/19 24 11/28/2023 COMPR EHENS NICOLE METAB OLIC PANEL AST 15 U/L 10-35 normal Not Available [address], [address], 11/28/2023 03:10:24 11/27/19 24 11/28/2023 COMPR EHENS NICOLE METAB OLIC PANEL ALT 10 U/L 6-29 normal Not Available [address], [address], 11/28/2023 03:10:24 11/27/19 24 11/28/2023 CBC (INCL UDES DIFF/ PLT) white blood cell count 4.8 thous and/u L 3.8-10 .8 normal Not Available [address], [address], 11/28/2023 03:10:24 11/27/19 24 11/28/2023 CBC (INCL UDES DIFF/ PLT) red blood cell count 3.90 madelin on/uL 3.80-5 .10 normal Not Available [address], [address], 11/28/2023 03:10:24 11/27/1911/28/2023 CBC (INCL UDES DIFF/ PLT) hemoglobin 12.3 g/dL 11.7-1 5.5 normal Not Available [address], [address], 11/28/2023 03:10:24 11/27/19 24 11/28/2023 CBC (INCL UDES DIFF/ PLT) hematocrit 38.6 % 35.0-4 5.0 normal Not Available [address], [address], 11/28/2023 03:10:24 11/27/1911/28/2023 CBC (INCL UDES DIFF/ PLT) MCV 99.0 fL 80.0-1 00.0 normal Not Available [address], [address], 11/28/2023 03:10:24 11/27/1911/28/2023 CBC (INCL UDES DIFF/ PLT) MCH 31.5 pg 27.0-3 3.0 normal Not Available [address], [address], 11/28/2023 03:10:24 11/27/19 24 11/28/2023 CBC (INCL UDES DIFF/ PLT) MCHC 31.9 g/dL 32.0-3 6.0 low Not Available [address], [address], 11/28/2023 03:10:24 11/27/19 11/28/2023 CBC (INCL UDES DIFF/ PLT) RDW 12.2 % 11.0-1 5.0 normal Not Available [address], [address], 11/28/2023 03:10:24 11/27/1911/28/2023 CBC (INCL UDES DIFF/ PLT) platelet count 257 thous and/u L 140-40 0 normal Not Available [address], [address], 11/28/2023 03:10:24 11/27/1911/28/2023 CBC (INCL UDES DIFF/ PLT) MPV 9.4 fL 7.5-12 .5 normal Not Available [address], [address], 11/28/2023 03:10:24 11/27/19 24 11/28/2023 CBC (INCL UDES DIFF/ PLT) absolute neutrophils 2107 cells /uL 1500-7 800 normal Not Available [address], [address], 11/28/2023 03:10:24 11/27/19 24 11/28/2023 CBC (INCL UDES DIFF/ PLT) absolute lymphocytes 2030 cells /uL 850-39 00 normal Not Available [address], [address], 11/28/2023 03:10:24 11/27/1911/28/2023 CBC (INCL UDES DIFF/ PLT) absolute monocytes 523 cells /uL 200-95 0 normal Not Available [address], [address], 11/28/2023 03:10:24 11/27/19 24 11/28/2023 CBC (INCL UDES DIFF/ PLT) absolute eosinophils 110 cells /uL 15-500 normal Not Available [address], [address], 11/28/2023 03:10:24 11/27/1911/28/2023 CBC (INCL UDES DIFF/ PLT) absolute basophils 29 cells /uL 0-200 normal Not Available [address], [address], 11/28/2023 03:10:24 11/27/1911/28/2023 CBC (INCL UDES DIFF/ PLT) neutrophils 43.9 % normal Not Available [address], [address], 11/28/2023 03:10:24 11/27/1911/28/2023 CBC (INCL UDES DIFF/ PLT) lymphocytes 42.3 % normal Not Available [address], [address], 11/28/2023 03:10:24 11/27/19 24 11/28/2023 CBC (INCL UDES DIFF/ PLT) monocytes 10.9 % normal Not Available [address], [address], 11/28/2023 03:10:24 11/27/19 24 11/28/2023 CBC (INCL UDES DIFF/ PLT) eosinophils 2.3 % normal Not Available [address], [address], 11/28/2023 03:10:24 11/27/1911/28/2023 CBC (INCL UDES DIFF/ PLT) basophils 0.6 % normal Not Available [address], [address], 11/28/2023 03:10:24 11/27/1911/28/2023 VITAM IN D,25- OH,TO ADELE,I A vitamin D,25-oh,tota l,ia 57 NG/mL 30-100 normal Vitam in D Statu s 25-OH Vitam in D: Defic iency : <20 ng/mL Insuf ficie ncy: 20 - 29 ng/mL Optim al: > or = 30 ng/mL For 25-OH Vitam in D testi ng on patie nts on D2-sahni pplem entat ion and patie nts for whom quant itati on of D2 and D3 fract ions is requi red, the Quest Assur eD(TM ) 25-OH VIT D, (D2,D 3), LC/MS /MS is recom akanksha d: order code 89588 (sabrina ents >2yrs ). See Note 1 Note 1 For addit ional infor mik vazquez e refer to http: //[facility] tg Draperia gnost ics.c om/fa q/FAQ 199 (This link is being provi ded for infor william mock/ tanya fuentes purpo ses only. ) Not Available [facility] [address] [place], [address], 11/28/2023 03:10:25 07/04/1907/04/2024 LIPID PANEL , STAND JAZMINE cholesterol, total 203 mg/dL <200 high Not Available [facility] [address] [address] [place], [address], 07/04/2024 05:23:29 07/04/1907/04/2024 LIPID PANEL , STAND JAZMINE HDL cholesterol 75 mg/dL > or = 50 normal Not Available [facility] [address] [place], [address], 07/04/2024 05:23:29 07/04/1907/04/2024 LIPID PANEL , STAND JAZMINE triglyceride s 67 mg/dL <150 normal Not Available [facility] [address] [place], [address], 07/04/2024 05:23:29 07/04/1907/04/2024 LIPID PANEL , STAND JAZMINE LDL-choleste rol 113 mg/dL _(lenin c) high Refer ence range : <100 Meaghan able range <100 mg/dL for prima ry preve ntion ; <70 mg/dL for patie nts with CHD or diabe tic patie nts with > or = 2 CHD risk facto rs. LDL-C is now calcu lated using the [facility] n-[facility] kins mananu tony n, which is a valid ated novel metho d provi ding amrita r accur acy than the [employer] anastasia equat ion in the estim ation of LDL-C . Alma ace SS et al. MELISSA. 2013; 310(1 9): 2061- 2068 (http ://ed ucati on.Qu estBIOSAFE. com/f aq/FA Q164) Not Available [address], [address], 07/04/2024 05:23:29 07/04/1907/04/2024 LIPID PANEL , STAND JAZMINE chol/HDLC ratio 2.7 (calc ) <5.0 normal Not Available [address], [address], 07/04/2024 05:23:29 07/04/1907/04/2024 LIPID PANEL , STAND JAZMINE non HDL cholesterol 128 mg/dL _(lenin c) <130 normal For patie nts with diabe prakash plus 1 major ASCVD risk facto r, treat ing to a non-H DL-C goal of <100 mg/dL (LDL- C of <70 mg/dL ) is consi jovanad a ioana aguilar optio n. Not Available [address] [address] [place], [address], 07/04/2024 05:23:29 07/04/1907/04/2024 COMPR EHENS NICOLE METAB OLIC PANEL glucose 86 mg/dL 65-99 normal Fasti ng refer ence inter yvette Not Available [facility] [address] [address] [place], [address], 07/04/2024 05:23:31 07/04/1907/04/2024 COMPR EHENS NICOLE METAB OLIC PANEL urea nitrogen (BUN) 16 mg/dL 7-25 normal Not Available [address], [address], 07/04/2024 05:23:31 07/04/19 25 07/04/2024 COMPR EHENS NICOLE METAB OLIC PANEL creatinine 0.59 mg/dL 0.50-1 .05 normal Not Available [address], [address], 07/04/2024 05:23:31 07/04/19 25 07/04/2024 COMPR EHENS NICOLE METAB OLIC PANEL eGFR 98 mL/mi n/1.7 3m2 > or = 60 normal Not Available [address], [address], 07/04/2024 05:23:31 07/04/1907/04/2024 COMPR EHENS NICOLE METAB OLIC PANEL BUN/creatini ne ratio SEE NOTE: (calc ) 6-22 Not Repor thom: BUN and Creat inine are withi n refer ence range . Not Available [address], [address], 07/04/2024 05:23:31 07/04/19 25 07/04/2024 COMPR EHENS NICOLE METAB OLIC PANEL sodium 138 mmol/ L 135-14 6 normal Not Available [address], [address], 07/04/2024 05:23:31 07/04/19 25 07/04/2024 COMPR EHENS NICOLE METAB OLIC PANEL potassium 4.5 mmol/ L 3.5-5. 3 normal Not Available [address], [address], 07/04/2024 05:23:31 07/04/19 25 07/04/2024 COMPR EHENS NICOLE METAB OLIC PANEL chloride 101 mmol/ L 98-110 normal Not Available [address] [place], [address], 07/04/2024 05:23:31 07/04/1907/04/2024 COMPR EHENS NICOLE METAB OLIC PANEL carbon dioxide 30 mmol/ L 20-32 normal Not Available [address], [address], 07/04/2024 05:23:31 07/04/1907/04/2024 COMPR EHENS NICOLE METAB OLIC PANEL calcium 8.9 mg/dL 8.6-10 .4 normal Not Available [address], [address], 07/04/2024 05:23:31 07/04/1907/04/2024 COMPR EHENS NICOLE METAB OLIC PANEL protein, total 6.3 g/dL 6.1-8. 1 normal Not Available [address], [address], 07/04/2024 05:23:31 07/04/1907/04/2024 COMPR EHENS NICOLE METAB OLIC PANEL albumin 4.4 g/dL 3.6-5. 1 normal Not Available [address], [address], 07/04/2024 05:23:31 07/04/1907/04/2024 COMPR EHENS NICOLE METAB OLIC PANEL globulin 1.9 g/dL_ (calc ) 1.9-3. 7 normal Not Available [address], [address], 07/04/2024 05:23:31 07/04/1907/04/2024 COMPR EHENS NICOLE METAB OLIC PANEL albumin/glob ulin ratio 2.3 (calc ) 1.0-2. 5 normal Not Available [address], [address], 07/04/2024 05:23:31 07/04/19 25 07/04/2024 COMPR EHENS NICOLE METAB OLIC PANEL bilirubin, total 1.2 mg/dL 0.2-1. 2 normal Not Available [address] [address] [place], [address], 07/04/2024 05:23:31 07/04/1907/04/2024 COMPR EHENS NICOLE METAB OLIC PANEL alkaline phosphatase 36 U/L 37-153 low Not Available [facility] [address] [address] [place], [address], 07/04/2024 05:23:31 07/04/1907/04/2024 COMPR EHENS NICOLE METAB OLIC PANEL AST 15 U/L 10-35 normal Not Available [address] [address] [place], [address], 07/04/2024 05:23:31 07/04/1907/04/2024 COMPR EHENS NICOLE METAB OLIC PANEL ALT 13 U/L 6-29 normal Not Available [address] [address] [place], [address], 07/04/2024 05:23:31 07/04/1907/04/2024 VITAM IN D,25- OH,TO ADELE,I A vitamin D,25-oh,tota l,ia 48 NG/mL 30-100 normal Vitam in D Statu s 25-OH Vitam in D: Defic iency : <20 ng/mL Insuf ficie ncy: 20 - 29 ng/mL Optim al: > or = 30 ng/mL For 25-OH Vitam in D testi ng on patie nts on D2-sahni pplem entat ion and patie nts for whom quant itati on of D2 and D3 fract ions is requi red, the Quest Assur eD(TM ) 25-OH VIT D, (D2,D 3), LC/MS /MS is recom akanksha d: order code 17652 (sabrina ents >2yrs ). See Note 1 Note 1 For addit ional infor mik vazquez refer to http: //sid Lau st[employer]ia gnost ics.c om/fa q/FAQ 199 (This link is being provi ded for infor william mock/ tanya kincaido ses only. ) Not Available [facility] [address] [address], [place], [address], 07/04/2024 05:23:32 Result Notes None recorded. Problems Name Problem SNOMED Code Status Onset Date Resolution Date Notes Provider Name and Address Organization Details Recorded Time Osteoarthritis of hip 650951328 Active 2022 Enrique Romeo MD Attn: Sharifa gonzalez,[address] [place], [address], [facility] - [facility] 3 10:52:16 Vitamin D deficiency 85846491 Active 2022 Enrique Romeo MD Attn: Sharifa [email or web address] [place], [address], [facility] - [facility] 3 10:52:19 Hypercholester olemia 91916539 Active 2022 Enrique Romeo MD Attn: Sharifa gonzalez,[address] [place], [address], [facility] - [facility] 3 10:52:20 Postmenopausal osteopenia 181316954 Active 2022 Enrique Romeo MD Attn: Sharifa [email or web address] [place], [address], [facility] - [facility] 3 10:52:21 Problem Notes None recorded. Procedures Surgical History Date Name Laterality Status Provider Name and Address Organization Details Recorded Time ligation of bilateral fallopian tubes completed Lynda Frost [place] - [facility] 12/10/2023 10:09:41 Imaging Results None recorded. Procedure Notes None recorded. Medical Equipment None Reported. Allergies No known drug allergies Medications Name Sig Start Date Stop Date Status Note LastModified by Organization Details LastModified Time alendronate 70 mg tablet PLEASE SEE ATTACHED FOR DETAILED DIRECTION S 11/14 completed Not Available Not Available Not Available triamcinolo ne acetonide 40 mg/mL suspension for injection Take 60 mg by injection route. 12/08 completed Not Available Not Available Not Available ibuprofen 600 mg tablet active Not Available Not Available Not Available rosuvastati n 10 mg tablet TAKE 1 TABLET BY MOUTH EVERYDAY AT BEDTIME 12/09 completed Not Available Not Available Not Available rosuvastati n 20 mg tablet TAKE 1 TABLET BY MOUTH EVERYDAY AT BEDTIME active Not Available Not Available No t Available ibandronate 150 mg tablet TAKE 1 TABLET BY MOUTH EVERY 30 DAYS IN AM W/GLASS OF WATER BEFORE FOOD, DON'T LIE DOWN FOR 30 MIN active Not Available Not Available No t Available Prolia 60 mg/mL subcutaneou s syringe active Not Available Not Available No t Available Paxlovid 300 mg (150 mg x 2)-100 mg tablets in a dose pack TAKE 3 TABLETS BY MOUTH TWICE A DAY. DO NOT TAKE ROSUVASTA TIN FOR 7 DAYS STARTING TODAY 12/09 completed Not Available Not Available Not Available Vitals Date Recorded Body height Body mass index (BMI) Body weight Respiratory rate Body temperature Oxygen saturation Oxygen saturation in Arterial blood by Pulse oximetry Heart rate Systolic blood pressure Diastolic blood pressure Provider Name and Address Organization Details Last Updated DateTime 4 160.02 cm 24.4 kg/m2 12939.7 5 g 16 /min 97.9 [degF] 98 % 98 % 63 /min 122 mm[Hg] 80 mm[Hg] Chelo Trent [place] - [facility] 4 09:40:14 Date Recorded Body height Oxygen saturation Oxygen saturation in Arterial blood by Pulse oximetry Heart rate Body mass index (BMI) Body weight Systolic blood pressure Diastolic blood pressure Provider Name and Address Organization Details Last Updated DateTime 5 160.02 cm 99 % 99 % 82 /min 24 kg/m2 83645.0 7 g 122 mm[Hg] 78 mm[Hg] Rodney Pierre [place] - [facility] 5 09:49:50 Date Recorded Body height Body mass index (BMI) Body weight Oxygen saturation Oxygen saturation in Arterial blood by Pulse oximetry Heart rate Respiratory rate Systolic blood pressure Diastolic blood pressure Provider Name and Address Organization Details Last Updated DateTime 4 160.02 cm 23.3 kg/m2 82446.7 5 g 99 % 99 % 76 /min 16 /min 118 mm[Hg] 74 mm[Hg] Lynda Frost [place] - [facility] 4 09:46:28 Social History Question Answer Notes LastModified by Organizat ion Details LastModified Time Tobacco Smoking Status Never Smoker TOBIN Vazquez, [facility] 11/14/2022 10:23:13 What Was The Date Of Your Most Recent Tobacco Screening? 06/23/2024 [email or web address] Information not available 06/23/2024 Has Tobacco Cessation Counseling Been Provided? No Information not available 11/14/2022 Sex: Female Functional Status Question Answer Note LastModified by Organizat ion Details LastModified Time Do you use any illicit or recreational drugs? No Information not available 11/14/2022 Do you or have you ever used any other forms of tobacco or nicotine? No Information not available 11/14/2022 What is your level of alcohol consumption? Occasional Information not available 11/14/2022 Mental Status None recorded. Family History Relationship Description Onset Age of this Age Resolved Age Notes LastModified by Organization Details LastModified Time Mother Malignant tumor of breast aphifferma Not available 12/09 10:05:27 Mother Hypertensive disorder aphifferma Not available 12/09 10:06:34 Sister Malignant tumor of breast aphifferma Not available 12/09 10:05:55 Medical History Condition Response Coronary Artery Disease N Other N Atrial Fibrillation N High Blood Pressure N Thyroid Problems N Kidney or Bladder Problems N GI Problems N Depression N COPD N Blood Clots N Eating Disorder N Skin Problems N Anemia N Heart Attack (NH) N Anxiety Disorder N Diabetes N Muscle, Joint, or Bone Problems N Seizures/Epilepsy N Acid Reflux (GERD) N Cancer N Stroke N Asthma N Allergies N ADHD N Substance Abuse N High Cholesterol Y Hepatitis N Liver Disease N Schizophrenia N Headaches N Heart Failure N Osteoporosis Y Gynecological HistoryNo gynecological history recorded. Obstetrics History GPAL:G 0 P 0 0 0 0 Immunizations Vaccine Type Date Status Note Provider Nam e and Address Organization Details Recorded Time zoster recombinant 0 completed TOBIN Vazquez, [place] - [facility] 11/14/2022 10:21:09 Influenza, adjuvanted, quadrivalent, PF 2 completed TOBIN Vazquez, [place] - [facility] 11/14/2022 10:21:09 COVID-19, mRNA, LNP-S, PF, 30 mcg/0.3 mL dose 1 completed Eliz Skelton [place] null, [place] - [facility] 11/14/2022 10:21:09 COVID-19, mRNA, LNP-S, PF, 30 mcg/0.3 mL dose 1 completed Eliz Skel[place], [place] [facility] 11/14/2022 10:21:09 COVID-19, mRNA, LNP-S, PF, 30 mcg/0.3 mL dose 1 completed TOBIN Vazquez[place] [facility] 11/14/2022 10:21:09 Pneumococcal conjugate PCV20, polysaccharide [id number] conjugate, adjuvant, PF 2 completed TOBIN Vazquez, [place] - [facility] 11/14/2022 10:21:09 COVID-19, mRNA, LNP-S, PF, 30 mcg/0.3 mL dose, jennyfer-sucrose 2 completed TOBIN Vazquez, [place] - [facility] 11/14/2022 10:21:09 COVID-19, mRNA, LNP-S, bivalent, PF, 30 mcg/0.3 mL dose 2 completed TO[place] [facility] 11/14/2022 10:21:09 Pneumococcal conjugate PCV 13 8 completed TO[place] [facility] 11/14/2022 10:21:09 Influenza, split virus, quadrivalent, PF 1 completed TO[place] [facility] 11/14/2022 10:21:09 Past Encounters Encounter ID Performer Location Encounter Start Date Encounter Closed Date Diagnosis/Indication Diagnosis SNOMED-CT Code Diagnosis ICD10 Code Diagnosis Note [id number] Enrique Romeo MD [facility] [address] [address] 11/14/2022 10:12:06 11/15/2022 12:08:59 Postmenopausal osteopenia [id number] M85.80 condition chronic and at goal continue the ibandronat e. order cbc Hypercholesterolemia [id number] E78.00 conditon chroinc and at goal continue the crestor. order lipid panel, cmp. Vitamin D deficiency 347 78071 E55.9 conditon chroinc adn at goal continue the vit d daily order vit d level Osteoarthritis of hip 23 8449535 M16.9 conditon choinc and not at goal start biofreese. [id number] Enrique Romeo MD [facility] [address] [place] [address] 06/10/2023 09:33:37 06/12/2023 10:36:29 Pain of sacroiliac joint [id number] M53.3 conditon acute injection the left si joint is prepped and draped in a sterile fasion 1.5 cc of kenalog is mixed with 1.5 cc of lidocaine and the left si joint is injected from a posterior approach. Hypercholesterolemia 136 66993 E78.00 conditon chroinc and at goal continue the crestor. 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 order prolea Vitamin D deficiency 347 83957 E55.9 conditon chroinc adn at goal continue the vit d daily my rx Osteoarthritis of hip 23 1274778 M16.9 conditon choinc and at goal continue the biofreese my rx [id number] Enrique Romeo MD [facility] [address] [place] [address] 07/03/2023 10:20:51 07/04/2023 10:37:58 Postmenopausal osteopenia [id number] M85.80 condition chronic and at goal has severe gerd from the med. order prolea [id number] Enrique Romeo MD [facility] [address] [place] [address] 12/10/2023 09:38:09 12/12/2023 13:11:05 Hypercholesterolemia 57314782 E78.00 conditon chroinc and not at goal increase the crestor to 20 mg. my rx Osteoarthritis of hip 23 9630651 M16.9 conditon choinc and at goal continue the biofreese my rx Postmenopa usal osteopenia 609662190 M85.80 condition chronic and at goal has severe gerd from the med. order prolea Vitamin D deficiency 347 22109 E55.9 conditon chroinc adn at goal continue the vit d daily my rx [id number] Enrique Romeo MD [facility] [address] [facility] [address] [place] [address] 12/20/2023 09:45:36 12/23/2023 10:38:56 Postmenopausal osteopenia 294377907 M85.80 condition chronic and at goal has severe gerd from the med. order prolea [id number] Enrique Romeo MD [facility] [address] [facility] [address] [place] [address] 06/23/2024 09:42:25 06/25/2024 10:05:41 Hypercholesterolemia 58167951 E78.00 conditon chroinc and not at goal increase the crestor to 20 mg. my rx order lipid panel, cmp Postmenopa usal osteopenia 484253583 M85.80 condition chronic and at goal has severe gerd from the med. continue prolea Vitamin D deficiency 347 60778 E55.9 conditon chroinc adn at goal continue the vit d daily my rx order vit d level Osteoarthritis of hip 23 3606508 M16.9 conditon choinc and at goal continue the biofreese my rx Health Concerns Section Related Observation LastModified by Organization Detai ls LastModified Time None Recorded Concern Status LastModified by Organization Details LastModified Time None Recorded Advance Directives Directive None Recorded Payers Insurance Date Sequence Insurance Name Policy Number Policy Nava Covered Member ID Nava Member ID Guarantor Name 06/23/2024 1 [employer] - PRIME (MEDICARE REPLACEMENT/ ADVANTAGE - HMO) [id number] Cecile Rm [id number] Cecile Rm Notes Date Note Type Note Provider Name and Address Organization Details Recorded Time 06/10/2023 text/html states that she is feleing fine. the chol is under conrol the osteopenia is treated has the left si pain taking her vit d. mammo and colo are utd. would like to try prolea Enrique Romeo MD Attn: Accounting,[address] [facility], [place], [address], [facility] 06/10/2023 18:14:00 12/10/2023 text/html states that the si joint injection worked. hte chol is under contorl the hip pain contineus nad is taking hte calcium and vit d the prolea injections for the osteopenia. the colo is utd. mammo is utd Enrique Romeo MD Attn: Accounting,[address] [facility], [place], [address], [facility] 12/10/2023 18:48:55 06/23/2024 text/html states that she is doing good and is taking her meds. yun chol is treated and the osteopenia is treated taking her vit d daily and the oa in the hip is stable Enrique Romeo MD Attn: Accounting,[address] [facility], [place], [address], [facility] 06/23/2024 11:16:30 OBGyn Episode No OBEpisode recorded.
--- OUTSIDE RECORDS SUMMARY | 2024-08-24 07:42 | XMS_ITS | Clinical Summary ---
Author Organization [facility] Healthcare ELISA Care Team Providers Care Sap Bpc Architect Name Role Phone Enrique Romeo MD Unavailable [phone] Allergies No known active allergies Medications [...] Conjugate PCV 13 07/24/2017 ZOSTER Recombinant 12/26/2019,09/21/2019 Surgical History Surgery Date Site/Laterality Comments TONSILLECTOMY at 6 yrs old OOPHORECTOMY Left HEMORRHOID SURGERY WISDOM TOOTH EXTRACTION TOE SURGERY TUBAL LIGATION Medical History Medical History Date Comments Hyperlipidemia Family History Medical History Relation Name Comments No Known Problems Father Arthritis Mother Adriana Duenas Breast cancer Mother Adriana Duenas Cancer Mother Adriana Duenas Hypertension Mother Adriana Duenas Lymphoma Mother Adriana Duenas Breast cancer Sister 1 kathleen Cancer Sister 1 kathleen Liver cancer Sister 1 kathleen Breast cancer Sister 2 Ivy Cancer Sister 2 Ivy No Known Problems Son 1 No Known Problems Son 2 Ovarian cancer Neg Hx Relation Name Status Comments Brother Alive Father Mother Adriana Duenas diagnosed age 7 1 Sister 1 kathleen Alive diagnosed age 5 0 Sister 2 Ivy diagnosed age 4 2 Sister 3 Alive Sister 4 Alive Son 1 Alive Son 2 Alive Social History Tobacco Use Types Packs/Day Years [...] on file 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 Gender Identity Female 09/02/2019 7:38 AM CDT Sexual Orientation Straight 09/02/2019 7: 38 AM CDT Obstetrics History Para Term AB IAB SAB Ectopic Multiple Livin g Live Births 2 2 2 Date Outcome GA Total Labor Labor/2nd/3rd Weight Sex Type Anes PTL Joy A1 A5 Name Clin Para Para Last Filed Vital Signs Vital Sign Reading [...] 11/28/2021 7:31 AM CDT Plan of Treatment Health Maintenance Due Date Last Done Comments Hepatitis C Screening 1955 Osteoporosis Screening-Bone Density Scan 1955 DTaP/Tdap/Td Vaccine (1 - Tdap) 1967 Hepatitis B Screening 1974 Pneumococcal vaccine 65+ (2 of 2 - PPSV23) 07/24/2018 07/24/2017 Breast Cancer Screening-Mammogram 05/03/2022 022 Depression Screening 11/28/2022 11/28/2021, 07/06/2020, 01/13/2020, Additional history exists Fall Risk Assessment 11/28/2022 11/28/2021, 12/09/2018, 06/07/2018 Well Visit 65+ 11/28/2022 11/28/2021, 1106/2019, 09/09/2019 Covid-19 Vaccine (5 - 2023-2 5 season) 2023 06/19/2021, 01/06/2021, 06/09/2020, Additional history exists Influenza Vaccine (Season Ended) 2024 12/14/19 21, 12/26/2019 Colon Cancer Screening-Colonoscopy 05/10/2031 05/09/2021 Zoster Vaccine Completed 12/26/2019, 09/21/2019 Colon Cancer Screening-CT Colonography Discontinued 05/09/2021 Colon Cancer Screening-DNA Stool Discontinued 05/10/19 Colon Cancer Screening-FIT Discontinued 05/09/2021 Colon Cancer Screening-Sigmoidoscopy Discontinued 05/09/2021 Procedures Procedure Name Priority Date/Time Associated Diagnosis Comments COLONOSCOPY Routine 05/09/2021 MAMMOGRAPHY Routine 05/03/2021 from Last 3 Months or Most Recently Relevant to Health Maintenance Results * Colonoscopy (05/09/2021) Anatomical Region Laterality Modality Other us Historical Provider ENDOSCOPY PROCEDURES Agustina l Result * MAMMOGRAPHY (05/03/2021) us Historical Provider HEALTH MAINTENANCE Final Result from Last 3 Months or Most Recently Relevant to Health Maintenance Insurance MEDICARE [facility] Advance Directives For more information, please contact: [phone] Documents on File Type Date Recorded Patient Tire Technician Expl anation ADVANCE DIRECTIVE 01/23/2019 12:00 AM [facility]IE ER OF WET PROCESS OPERATOR FINANCIAL/MEDICAL Care Teams Sap Bpc Architect Relationship Specialty Start Date End Date Enrique Romeo MD Family Medicine 12/29/18
== END 2024-08-24 07:39 | disposition home or self-care (01) ==
PROVIDERS: Visit Provider Obstetrics & Gynecology
DX: Z12.31 Encounter for screening mammogram for malignant neoplasm of breast (principal)
CPT/HCPCS: 77063; 77067

== ENCOUNTER 2024-10-02 09:06 | Outpatient (CLI) | payer MEDICARE, SELFPAY ==
--- NOTE | ~2024-10-02 | DEXA_ITS ---
Bone Density Report Name: MALI VILLEGAS Age: 69 Sex: Female Ethnicity: White Date of : 1955 Indication: osteopenia; monitoring treatment; Referring Provider: CHOCO, MEGGAN Whelan Study: Bone densitometry was performed. Exam Date: October 02, 2024 Accession number: [id number] Bone Density: Region BMD T-score Z-score Classification AP Spine(L1-L4) 0.966 -0.7 1.3 Normal Femoral Neck (Left) 0.653 -1.8 -0.1 Osteopenia Total Hip (Left) 0.799 -1.2 0.2 Osteopenia Femoral Neck (Right) 0.639 -1.9 -0.2 Osteopenia Total Hip (Right) 0.826 -0.9 0.5 Normal Total Hip Mean 0.813 -1.1 0.4 Osteopenia World Health Organization criteria for BMD impression classify patients as: Normal (T-score at or above -1.0), Osteopenia (T-score between -1.0 and -2.5), or Osteoporosis (T-score at or below -2.5). 10-year Fracture Risk: FRAX not reported because: Treated for osteoporosis Previous Exams: Region Exam Age BMD T-score BMD Change BMD Change Date g/cm2 vs Baseline vs Previous AP Spine (L1-L4) 10/02/2024 69 0.966 -0.7 0.034 (3.6%)* 0.092 (10.5%)* 01/31/2022 66 0.874 -1.6 -0.058 (-6.3%) -0.058 (-6.3%) 02/07/2016 60 0.932 -1.0 Total Hip(Left) 10/02/2024 69 0.799 -1.2 0.021 (2.8%) 0.044 (5.8%)* 01/31/2022 66 0.755 -1.5 -0.022 (-2.9%) -0.022 (-2.9%) 02/07/2016 60 0.777 -1.3 Total Hip(Right) 10/02/2024 69 0.826 -0.9 0.031 (3.9%)* 0.065 (8.5%)* 01/31/2022 66 0.762 -1.5 -0.033 (-4.2%) -0.033 (-4.2%) 02/07/2016 60 0.795 -1.2 *Denotes significance at 95% confidence level, LSC for AP Spine = 0.022 g/cm2, LSC for Total Hip = 0.027 g/cm2 Clinical Information Provided by Patient: Is being treated for osteoporosis Has used the following medications: Prolia (i.e. denosumab), Vitamin D Patient maximum height was 63.5 Menopause Age: 51 Onset of menses at age 12 Number of children 2 Impression: The patient has low bone mass, based on the Right Femoral Neck T-score. No significant bone loss was observed. Discussion: PATIENT UNDER TREATMENT WITH NO SIGNIFICANT BMD LOSS SINCE LAST EXAM. In an untreated patient, BMD typically declines with age. A lack of decline or gain is usually a sign that treatment is efficacious and fracture risk is reduced. It is important to ask patients whether they are taking their medications and to encourage continued and appropriate compliance with their osteoporosis therapies to reduce fracture risk. It is also important to review their risk factors and encourage appropriate calcium and vitamin D intakes, exercise, fall prevention and other lifestyle measures. Follow-Up: Consider a repeat BMD and Vertebral Fracture Assessment (VFA) exam in 2 years or sooner if medically necessary, to reassess this patient's status. Reported by: CARRIE on 10/02/2024 9:41:00 AM. Reviewed, dictated and finalized at location A.
--- OUTSIDE RECORDS SUMMARY | 2024-10-02 09:12 | XMS_ITS | Referral Summary ---
Author Organization 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
--- OUTSIDE RECORDS SUMMARY | 2024-10-02 09:12 | XMS_ITS | Clinical Summary ---
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 Gender Identity Female 09/02/2019 7:38 AM CDT [...] 11/28/2022 11/28/2021, 1106/2019, 09/09/2019 Covid-19 Vaccine (5 2023-2 5 season) 2023 06/19/2021, 01/06/2021, 06/09/2020, Additional history exists Influenza Vaccine (#1) 2024 12/13/2020, 2019 Colon Cancer Screening-Colonoscopy 05/10/2031 05/09/2021 Zoster Vaccine [...] Recently Relevant to Health Maintenance Insurance MEDICARE [facility] Advance Directives For more information, please contact: [phone] Documents on File Type Date Recorded Patient Psychiatry Teacher Expl anation ADVANCE DIRECTIVE 01/23/2019 12:00 AM [facility]IE ER OF RISK AND COMPLIANCE ANALYTICS DIRECTOR FINANCIAL/MEDICAL Care Teams Oil Inspector Relationship Specialty Start Date End Date Enrique Romeo MD Family Medicine 12/29/18
--- OUTSIDE RECORDS SUMMARY | 2024-10-02 09:12 | XMS_ITS | Data Portability ---
Author Organization [facility] Address [address] [place] [address] Assessment No assessment recorded. Plan of Treatment Reminders Order Date Submit Date Provider Last Modified By Organization Details Last Modified Time Details Appointments ANY 15 2024 09:00A Aida Romeo MD Not available Not available Not available Lab vitamin D, 25-hydrox y, total, serum 2024 025 [facility], [address], [place], [address], 07/04/2024 05:23:32 lipid panel, serum 2024 025 [facility], [address], [place], [address], 07/04/2024 05:23:29 CMP, serum or plasma 2024 025 [facility], [address], [place], [address], 07/04/2024 05:23:31 Referral None recorded. Procedures None recorded. Surgeries None recorded. Imaging None recorded. Medication Orders Prolia 60 mg/mL subcutane ous syringe 2023 024 [email or web address] [id number], [address] [place], [address], 12/20/2023 10:23:17 Prolia 60 mg/mL subcutane ous syringe 2023 024 [email or web address] [id number], [address] [place], [address], 07/03/2023 11:11:10 triamcino lone acetonide 40 mg/mL suspensio n for injection 2023 024 [email or web address] Not available 12/09/2023 11:10:18 Prolia 60 mg/mL subcutane ous syringe 2023 024 [email or web address] [id number], [address] [place], [address], 06/10/2023 11:08:57 Patient TargetsNo targets recorded. Patient InstructionsNo instructions recorded. Reason for Referral None Reported. Results Created Date Observation Date Name Description Value Unit Range Abnormal Flag Note LastModifiedBy Organization Detail LastModifiedTime 05/24/1905/24/2023 LIPID PANEL , STAND JAZMINE cholesterol, total 217 mg/dL <200 high Not Available [facility] [address] [place], [address], 05/24/2023 18:22:14 05/24/1905/24/2023 LIPID PANEL , STAND JAZMINE HDL cholesterol 76 mg/dL > or = 50 normal Not Available [employer] [facility] [address] [place], [address], 05/24/2023 18:22:14 05/24/1905/24/2023 LIPID PANEL , STAND JAZMINE triglyceride s 92 mg/dL <150 normal Not Available [facility] [address] [place], [address], 05/24/2023 18:22:14 05/24/1905/24/2023 LIPID PANEL , STAND JAZMINE LDL-choleste rol 121 mg/dL _(lenin c) high Refer ence range : <100 Meaghan able range <100 mg/dL for prima ry preve ntion ; <70 mg/dL for patie nts with CHD or diabe tic patie nts with > or = 2 CHD risk facto rs. LDL-C is now calcu lated using the [facility] kins leola jimenez n, which is a valid ated novel maxwell vargas than the Fried anastasia mikeat ion in the estim ation of LDL-C . Alma ace SS et al. MELISSA. 2013; 310(1 9): 2061- 2068 (http ://ed ucati on.Qu estDi Char [employer]. com/f aq/FA Q164) Not Available [facility] [facility] [address] [address] [place], [address], 05/24/2023 18:22:14 05/24/19 24 05/24/2023 LIPID PANEL , STAND JAZMINE chol/HDLC ratio 2.9 (calc ) <5.0 normal Not Available [facility] [facility] [address] [address] [place], [address], 05/24/2023 18:22:14 05/24/19 24 05/24/2023 LIPID PANEL , STAND JAZMINE non HDL cholesterol 141 mg/dL _(lenin c) <130 high For patie nts with diabe prakash plus 1 major ASCVD risk facto r, treat ing to a non-H DL-C goal of <100 mg/dL (LDL- C of <70 mg/dL ) is consi jovanad a ioana aguilar optio n. Not Available [employer] [place] [address] [place], [address], 05/24/2023 18:22:14 11/27/19 24 11/28/2023 LIPID PANEL , STAND JAZMINE cholesterol, total 225 mg/dL <200 high Not Available [facility] [address] [address] [place], [address], 11/28/2023 03:10:23 11/27/19 24 11/28/2023 LIPID PANEL , STAND JAZMINE HDL cholesterol 81 mg/dL > or = 50 normal Not Available [employer] [address] [address] [place], [address], 11/28/2023 03:10:23 11/27/19 24 11/28/2023 LIPID PANEL , STAND JAZMINE triglyceride s 80 mg/dL <150 normal Not Available [address], [address], 11/28/2023 03:10:23 11/27/19 24 11/28/2023 LIPID PANEL [...] 9): 2061- 2068 (http ://ed ucati on.Qu estSolmentum. com/f aq/FA Q164) Not Available [address], [address], 11/28/2023 03:10:23 11/27/19 24 11/28/2023 LIPID PANEL , STAND JAZMINE chol/HDLC ratio 2.8 (calc ) <5.0 normal Not Available [address], [address], 11/28/2023 03:10:23 11/27/19 24 11/28/2023 LIPID PANEL , STAND JAZMINE non HDL cholesterol 144 mg/dL _(lenin c) <130 high For patie nts with diabe prakash plus 1 major ASCVD risk facto r, treat ing to a non-H DL-C goal of <100 mg/dL (LDL- C of <70 mg/dL ) is consi dered a thera peuti c optio n. Not Available [address], [address], 11/28/2023 03:10:23 11/27/19 24 11/28/2023 COMPR EHENS NICOLE METAB OLIC PANEL glucose 92 mg/dL 65-99 normal Fasti ng refer ence inter yvette Not Available [address], [address], 11/28/2023 03:10:24 11/27/19 24 11/28/2023 COMPR EHENS NICOLE METAB OLIC PANEL urea nitrogen (BUN) 13 mg/dL 7-25 normal Not Available [address], [address], 11/28/2023 03:10:24 11/27/19 24 11/28/2023 COMPR EHENS NICOLE METAB OLIC PANEL creatinine 0.57 mg/dL 0.50-1 .05 normal Not Available [address], [address], 11/28/2023 03:10:24 11/27/19 24 11/28/2023 COMPR EHENS NICOLE METAB OLIC PANEL eGFR 100 mL/mi n/1.7 3m2 > or = 60 normal Not Available [address], [address], 11/28/2023 03:10:24 11/27/19 24 11/28/2023 COMPR EHENS NICOLE METAB OLIC PANEL BUN/creatini ne ratio SEE NOTE: (calc ) 6-22 Not Repor thom: BUN and Creat inine are withi n refer ence range . Not Available [address], [address], 11/28/2023 03:10:24 11/27/19 24 11/28/2023 COMPR EHENS NICOLE METAB OLIC PANEL sodium 141 mmol/ L 135-14 6 normal Not Available [address], [address], 11/28/2023 03:10:24 11/27/19 24 11/28/2023 COMPR EHENS NICOLE METAB OLIC PANEL potassium 4.3 mmol/ L 3.5-5. 3 normal Not Available [address], [address], 11/28/2023 03:10:24 11/27/19 24 11/28/2023 COMPR EHENS NICOLE METAB OLIC PANEL chloride 103 mmol/ L 98-110 normal Not Available [address], [address], 11/28/2023 03:10:24 11/27/19 24 11/28/2023 COMPR EHENS NICOLE METAB OLIC PANEL carbon dioxide 31 mmol/ L 20-32 normal Not Available [address], [address], 11/28/2023 03:10:24 11/27/19 24 11/28/2023 COMPR EHENS NICOLE METAB OLIC PANEL calcium 9.0 mg/dL 8.6-10 .4 normal Not Available [address], [address], 11/28/2023 03:10:24 11/27/19 24 11/28/2023 COMPR EHENS NICOLE METAB OLIC PANEL protein, total 6.3 g/dL 6.1-8. 1 normal Not Available [address], [address], 11/28/2023 03:10:24 11/27/1911/28/2023 COMPR EHENS NICOLE METAB OLIC PANEL albumin 4.5 g/dL 3.6-5. 1 normal Not Available [address], [address], 11/28/2023 03:10:24 11/27/19 24 11/28/2023 COMPR EHENS NICOLE METAB OLIC PANEL globulin 1.8 g/dL_ (calc ) 1.9-3. 7 low Not Available [address], [address], 11/28/2023 03:10:24 11/27/19 24 11/28/2023 COMPR EHENS NICOLE METAB OLIC PANEL albumin/glob ulin ratio 2.5 (calc ) 1.0-2. 5 normal Not Available [address], [address], 11/28/2023 03:10:24 11/27/19 24 11/28/2023 COMPR EHENS NICOLE METAB OLIC PANEL bilirubin, total 1.2 mg/dL 0.2-1. 2 normal Not Available [address], [address], 11/28/2023 03:10:24 11/27/19 24 11/28/2023 COMPR EHENS NICOLE METAB OLIC PANEL alkaline phosphatase 35 U/L 37-153 low Not Available [facility] [employer] [address], [address], 11/28/2023 03:10:24 11/27/19 24 11/28/2023 COMPR EHENS NICOLE METAB OLIC PANEL AST 15 U/L 10-35 normal Not Available [address], [address], 11/28/2023 03:10:24 11/27/19 24 11/28/2023 COMPR EHENS NICOLE METAB OLIC PANEL ALT 10 U/L 6-29 normal Not Available [facility] [employer] [address], [address], 11/28/2023 03:10:24 11/27/19 24 11/28/2023 CBC (INCL UDES DIFF/ PLT) white blood cell count 4.8 thous and/u L 3.8-10 .8 normal Not Available [address], [address], 11/28/2023 03:10:24 11/27/1911/28/2023 CBC (INCL UDES DIFF/ PLT) red blood cell count 3.90 madelin on/uL 3.80-5 .10 normal Not Available [address], [address], 11/28/2023 03:10:24 11/27/1911/28/2023 CBC (INCL UDES DIFF/ PLT) hemoglobin 12.3 g/dL 11.7-1 5.5 normal Not Available [address], [address], 11/28/2023 03:10:24 11/27/1911/28/2023 CBC (INCL UDES DIFF/ PLT) hematocrit 38.6 % 35.0-4 5.0 normal Not Available [address], [address], 11/28/2023 03:10:24 11/27/1911/28/2023 CBC (INCL UDES DIFF/ PLT) MCV 99.0 fL 80.0-1 00.0 normal Not Available [address], [address], 11/28/2023 03:10:24 11/27/1911/28/2023 CBC (INCL UDES DIFF/ PLT) MCH 31.5 pg 27.0-3 3.0 normal Not Available [address], [address], 11/28/2023 03:10:24 11/27/1911/28/2023 CBC (INCL UDES DIFF/ PLT) MCHC 31.9 g/dL 32.0-3 6.0 low Not Available [address], [address], 11/28/2023 03:10:24 11/27/19 24 11/28/2023 CBC (INCL UDES DIFF/ PLT) RDW 12.2 % 11.0-1 5.0 normal Not Available [address], [address], 11/28/2023 03:10:24 11/27/19 24 11/28/2023 CBC (INCL UDES DIFF/ PLT) platelet count 257 thous and/u L 140-40 0 normal Not Available [address], [address], 11/28/2023 03:10:24 11/27/1911/28/2023 CBC (INCL UDES DIFF/ PLT) MPV 9.4 fL 7.5-12 .5 normal Not Available [address], [address], 11/28/2023 03:10:24 11/27/19 24 11/28/2023 CBC (INCL UDES DIFF/ PLT) absolute neutrophils 2107 cells /uL 1500-7 800 normal Not Available [address], [address], 11/28/2023 03:10:24 11/27/19 24 11/28/2023 CBC (INCL UDES DIFF/ PLT) absolute lymphocytes 2030 cells /uL 850-39 00 normal Not Available [address], [address], 11/28/2023 03:10:24 11/27/19 24 11/28/2023 CBC (INCL UDES DIFF/ PLT) absolute monocytes 523 cells /uL 200-95 0 normal Not Available [address], [address], 11/28/2023 03:10:24 11/27/19 24 11/28/2023 CBC (INCL UDES DIFF/ PLT) absolute eosinophils 110 cells /uL 15-500 normal Not Available [address], [address], 11/28/2023 03:10:24 11/27/19 24 11/28/2023 CBC (INCL UDES DIFF/ PLT) absolute basophils 29 cells /uL 0-200 normal Not Available [address], [address], 11/28/2023 03:10:24 11/27/19 24 11/28/2023 CBC (INCL UDES DIFF/ PLT) neutrophils 43.9 % normal Not Available [address], [address], 11/28/2023 03:10:24 11/27/1911/28/2023 CBC (INCL UDES DIFF/ PLT) lymphocytes 42.3 % normal Not Available [address], [address], 11/28/2023 03:10:24 11/27/19 24 11/28/2023 CBC (INCL UDES DIFF/ PLT) monocytes 10.9 % normal Not Available [address], [address], 11/28/2023 03:10:24 11/27/19 24 11/28/2023 CBC (INCL UDES DIFF/ PLT) eosinophils 2.3 % normal Not Available [address], [address], 11/28/2023 03:10:24 11/27/1911/28/2023 CBC (INCL UDES DIFF/ PLT) basophils 0.6 % normal Not Available [address], [address], 11/28/2023 03:10:24 11/27/19 24 11/28/2023 VITAM IN D,25- [place],TO [place],I A vitamin [...] /MS is recom akanksha d: order code 00716 (sabrina ents >2yrs ). See Note 1 Note 1 For addit ional infor mik vazquez e refer to http: //[facility] tg Brannon gnrosanna ics.c om/fa q/FAQ 199 (This link is being provi ded for infor william mock/ tanya fuentes purpo ses only. ) Not Available [facility] [address] [address] [place], [address], 11/28/2023 03:10:25 07/04/1907/04/2024 LIPID PANEL , STAND JAZMINE cholesterol, total 203 mg/dL <200 high Not Available [address] [place], [address], 07/04/2024 05:23:29 07/04/1907/04/2024 LIPID PANEL , STAND JAZMINE HDL cholesterol 75 mg/dL > or = 50 normal Not Available [employer] [address], [address], 07/04/2024 05:23:29 07/04/1907/04/2024 LIPID PANEL , STAND JAZMINE triglyceride s 67 mg/dL <150 normal Not Available [address], [address], 07/04/2024 05:23:29 07/04/1907/04/2024 LIPID PANEL , STAND JAZMINE LDL-choleste rol 113 mg/dL _(lenin c) high Refer ence range : <100 Meaghan able range <100 mg/dL for prima ry preve ntion ; <70 mg/dL for patie nts with CHD or diabe tic patie nts with > or = 2 CHD risk facto rs. LDL-C is now calcu lated using the Alma n-Hop kins calcu elroysue n, which is a valid ated novel metho d provi ding amrita r accur acy than the Fried anastasia equat ion in the estim ation of LDL-C . Alma ace SS et al. MELISSA. 2013; 310(1 9): 2061- 2068 (http ://ed ucati on.Qu estSolmentum. com/f aq/FA Q164) Not Available [address] [address] [place], [address], 07/04/2024 05:23:29 07/04/1907/04/2024 LIPID PANEL , STAND JAZMINE chol/HDLC ratio 2.7 (calc ) <5.0 normal Not Available [address] [address] [place], [address], 07/04/2024 05:23:29 07/04/1907/04/2024 LIPID PANEL , STAND JAZMINE non HDL cholesterol 128 mg/dL _(lenin c) <130 normal For patie nts with diabe prakash plus 1 major ASCVD risk facto r, treat ing to a non-H DL-C goal of <100 mg/dL (LDL- C of <70 mg/dL ) is jefry aguilar optio n. Not Available [address] [address] [place], [address], 07/04/2024 05:23:29 07/04/1907/04/2024 COMPR EHENS NICOLE METAB OLIC PANEL glucose 86 mg/dL 65-99 normal Fasti ng refer ence inter yvette Not Available [facility] [address] [address] [place], [address], 07/04/2024 05:23:31 07/04/19 25 07/04/2024 COMPR EHENS NICOLE METAB OLIC PANEL urea nitrogen (BUN) 16 mg/dL 7-25 normal Not Available [address], [address], 07/04/2024 05:23:31 07/04/19 25 07/04/2024 COMPR EHENS NICOLE METAB OLIC PANEL creatinine 0.59 mg/dL 0.50-1 .05 normal Not Available [address], [address], 07/04/2024 05:23:31 07/04/19 25 07/04/2024 COMPR EHENS NICOLE METAB OLIC PANEL eGFR 98 mL/mi n/1.7 3m2 > or = 60 normal Not Available [address], [address], 07/04/2024 05:23:31 07/04/1907/04/2024 COMPR EHENS NICOLE METAB OLIC PANEL BUN/creatini ne ratio SEE NOTE: (calc ) 6-22 Not Repor thom: BUN and Creat inine are withi n refer ence range . Not Available [address], [address], 07/04/2024 05:23:31 07/04/19 25 07/04/2024 COMPR EHENS NICOLE METAB OLIC PANEL sodium 138 mmol/ L 135-14 6 normal Not Available [address], [address], 07/04/2024 05:23:31 07/04/19 25 07/04/2024 COMPR EHENS NICOLE METAB OLIC PANEL potassium 4.5 mmol/ L 3.5-5. 3 normal Not Available [address], [address], 07/04/2024 05:23:31 07/04/19 25 07/04/2024 COMPR EHENS NICOLE METAB OLIC PANEL chloride 101 mmol/ L 98-110 normal Not Available [address], [address], 07/04/2024 05:23:31 07/04/1907/04/2024 COMPR EHENS NICOLE METAB OLIC PANEL carbon dioxide 30 mmol/ L 20-32 normal Not Available [address], [address], 07/04/2024 05:23:31 07/04/1907/04/2024 COMPR EHENS NICOLE METAB OLIC PANEL calcium 8.9 mg/dL 8.6-10 .4 normal Not Available [address], [address], 07/04/2024 05:23:31 07/04/19 25 07/04/2024 COMPR EHENS NICOLE METAB OLIC PANEL protein, total 6.3 g/dL 6.1-8. 1 normal Not Available [address], [address], 07/04/2024 05:23:31 07/04/1907/04/2024 COMPR EHENS NICOLE METAB OLIC PANEL albumin 4.4 g/dL 3.6-5. 1 normal Not Available [address], [address], 07/04/2024 05:23:31 07/04/1907/04/2024 COMPR EHENS NICOLE METAB OLIC PANEL globulin 1.9 g/dL_ (calc ) 1.9-3. 7 normal Not Available [address], [address], 07/04/2024 05:23:31 07/04/19 25 07/04/2024 COMPR EHENS NICOLE METAB OLIC PANEL albumin/glob ulin ratio 2.3 (calc ) 1.0-2. 5 normal Not Available [address], [address], 07/04/2024 05:23:31 07/04/1907/04/2024 COMPR EHENS NICOLE METAB OLIC PANEL bilirubin, total 1.2 mg/dL 0.2-1. 2 normal Not Available [address] [address] [place], [address], 07/04/2024 05:23:31 07/04/1907/04/2024 COMPR EHENS NICOLE METAB OLIC PANEL alkaline phosphatase 36 U/L 37-153 low Not Available [facility] [address] [address] [place], [address], 07/04/2024 05:23:31 07/04/1907/04/2024 COMPR EHENS NICOLE METAB OLIC PANEL AST 15 U/L 10-35 normal Not Available [address] [address] [place], [address], 07/04/2024 05:23:31 07/04/1907/04/2024 COMPR EHENS NICOLE METAB OLIC PANEL ALT 13 U/L 6-29 normal Not Available [address] [address] [place], [address], 07/04/2024 05:23:31 07/04/1907/04/2024 VITAM IN D,25- [place],TO [...] /MS is recom akanksha d: order code 45806 (sabrina ents >2yrs ). See Note 1 Note 1 For addit ional infor mik vazquez refer to http: //[facility] tg Draperia gnost ics.c om/fa q/FAQ 199 (This link is being provi ded for infor william mock/ tanya noyola ses only. ) Not Available [employer] [facility] [address] [address], [place], [address], 07/04/2024 05:23:32 Result Notes None recorded. Problems Name Problem SNOMED Code Status Onset Date Resolution Date Notes Provider Name and Address Organization Details Recorded Time Osteoarthritis of hip 413975177 Active 2022 Enrique Romeo MD Attn: Sharifa gonzalez,[address] [place], [place], [address] [place] [address] 2, [facility] 3 10:52:16 Vitamin D deficiency 50328118 Active 2022 Enrique Romeo MD Attn: Sharifa gonzalez,[address] [place], [place], [address] [place] [address] 2, [facility] 3 10:52:19 Hypercholester olemia 34353412 Active 2022 Enrique Romeo MD Attn: Sharifa gonzalez,[address] [place], [place], [address] [place] [address] 2, [facility] 3 10:52:20 Postmenopausal osteopenia 982927683 Active 2022 Enrique Romeo MD Attn: Sharifa gonzalez,[address] [place], [place], [address] [place] [address] 2, [facility] - [facility] 3 10:52:21 Problem Notes None recorded. Procedures Surgical History Date Name Laterality Status Provider Name and Address Organization Details Recorded Time ligation of bilateral fallopian tubes completed Lynda Frost MA [facility] 12/10/2023 10:09:41 Imaging Results None recorded. Procedure [...] blood by Pulse oximetry Heart rate Systolic And Diastolic Provider Name and Address Organization Details Last Updated DateTime 4 160.02 cm 24.4 kg/m2 62252.7 5 g 16 /min 97.9 [degF] 98 % 98 % 63 /min 122/80 mm[Hg] Chelo Trent [place] - [facility] 4 09:40:14 Date Recorded Body height Oxygen saturation Oxygen saturation in Arterial blood by Pulse oximetry Heart rate Body mass index (BMI) Body weight Systolic And Diastolic Provider Name and Address Organization Details Last Updated DateTime 5 160.02 cm 99 % 99 % 82 /min 24 kg/m2 90836.0 7 g 122/78 mm[Hg] Rodney Pierre [place] - [facility] 5 09:49:50 Date Recorded Body height Body mass index (BMI) Body weight Oxygen saturation Oxygen saturation in Arterial blood by Pulse oximetry Heart rate Respiratory rate Systolic And Diastolic Provider Name and Address Organization Details Last Updated DateTime 4 160.02 cm 23.3 kg/m2 99933.7 5 g 99 % 99 % 76 /min 16 /min 118/74 mm[Hg] Lynda Frost [place] - [facility] 4 09:46:28 Social History Question Answer Notes LastModified by Organizat [employer] Details LastModified Time Tobacco Smoking Status Never Smoker TOBIN Vazquez, [place] - [facility] 11/14/2022 10:23:13 What Was The Date Of Your Most Recent Tobacco Screening? 06/23/2024 [email or web address] Information not available 06/23/2024 Has Tobacco Cessation Counseling Been Provided? No Information not available 11/14/2022 Sex: Female Functional Status Question Answer Note LastModified by Organizat [employer] Details LastModified Time Do you use any [...] Problems N Kidney or Bladder Problems N Depression N COPD N Blood Clots N GI Problems N Skin Problems N Eating Disorder N Anemia N Heart Attack ([place]) N Diabetes N Anxiety Disorder N Muscle, Joint, or Bone Problems N Seizures/Epilepsy N Acid Reflux (GERD) N Cancer N Stroke N Allergies N Asthma N ADHD N Substance Abuse N High Cholesterol Y Hepatitis N Liver Disease N Schizophrenia N Headaches N Osteoporosis Y Heart Failure N Gynecological HistoryNo gynecological history recorded. Obstetrics History GPAL:G 0 P 0 0 0 0 Immunizations Vaccine Type Date Status Note Provider Nam e and Address Organization Details Recorded Time zoster recombinant 0 completed TOBIN Vaz[place] - [facility] 11/14/2022 10:21:09 Influenza, adjuvanted, quadrivalent, PF 2 completed TOBIN Vazquez, [place] - [facility] 11/14/2022 10:21:09 COVID-19, mRNA, LNP-S, PF, 30 mcg/0.3 mL dose 1 completed TOBIN [place] [facility] 11/14/2022 10:21:09 COVID-19, mRNA, LNP-S, PF, 30 mcg/0.3 mL dose 1 completed TOBIN [place] [facility] 11/14/2022 10:21:09 COVID-19, mRNA, LNP-S, PF, 30 mcg/0.3 mL dose 1 completed TOBIN Vaz[place] [facility] 11/14/2022 10:21:09 Pneumococcal conjugate PCV20, polysaccharide HYV057 conjugate, adjuvant, PF 2 completed TOBIN Vazquez, [...] SNOMED-CT Code Diagnosis ICD10 Code Diagnosis Note [id number] Enrique Romeo MD [facility] [address] [address] 11/14/2022 10:12:06 11/15/2022 12:08:59 Postmenopausal osteopenia 818859343 M85.80 condition chronic and at goal continue the ibandronat e. order cbc Hypercholesterolemia 136 39707 E78.00 conditon chroinc and at goal continue the crestor. order lipid panel, cmp. Vitamin D deficiency 347 43613 E55.9 conditon chroinc adn at goal continue the vit d daily order vit d level Osteoarthritis of hip 23 3637365 M16.9 conditon choinc and not at goal start biofreese. [id number] Enrique Romeo MD [facility] [address] [place] [address] 06/10/2023 09:33:37 06/12/2023 10:36:29 Pain of sacroiliac joint 322005462 M53.3 conditon acute injection the left si joint is prepped and draped in a sterile fasion 1.5 cc of kenalog is mixed with 1.5 cc of lidocaine and the left si joint is injected from a posterior approach. Hypercholesterolemia 136 72358 E78.00 conditon chroinc and at goal continue the crestor. my rx Postmenopa usal osteopenia 794786118 M85.80 condition chronic and at goal has severe gerd from the med. order prolea Vitamin D deficiency 347 32551 E55.9 conditon chroinc adn at goal continue the vit d daily my rx Osteoarthritis of hip 23 8233529 M16.9 conditon choinc and at goal continue the biofreese my rx [id number] Enrique Romeo MD [facility] [address] [place] [address] 07/03/2023 10:20:51 07/04/2023 10:37:58 Postmenopausal osteopenia 138134684 M85.80 condition chronic and at goal has severe gerd from the med. order prolea [id number] Enrique Romeo MD [facility] [place] [address] [place] [address] 12/10/2023 09:38:09 12/12/2023 13:11:05 Hypercholesterolemia 08259503 E78.00 conditon chroinc and not at goal increase the crestor to 20 mg. my rx Osteoarthritis of hip 23 5373074 M16.9 conditon choinc and at goal continue the biofreese my rx Postmenopa usal osteopenia 408880050 M85.80 condition chronic and at goal has severe gerd from the med. order prolea Vitamin D deficiency 347 72595 E55.9 conditon chroinc adn at goal continue the vit d daily my rx [id number] Enrique Romeo MD [facility] [place] [place] [address] [facility] [address] [place] [address] 12/20/2023 09:45:36 12/23/2023 10:38:56 Postmenopausal osteopenia 447582233 M85.80 condition chronic and at goal has severe gerd from the med. order prolea [id number] Enrique Romeo MD [facility] [place] [place] [address] [facility] [address] [place] [address] 06/23/2024 09:42:25 06/25/2024 10:05:41 Hypercholesterolemia 64430369 E78.00 conditon chroinc and not at goal increase the crestor to 20 mg. my rx order lipid panel, cmp Postmenopa usal osteopenia [id number] M85.80 condition chronic and at goal has severe gerd from the med. continue prolea Vitamin D deficiency [id number] E55.9 conditon chroinc adn at goal continue the vit d daily my rx order vit d level Osteoarthritis of hip 23 [id number] M16.9 conditon choinc and at goal continue [...] - PRIME (MEDICARE REPLACEMENT/ ADVANTAGE - HMO) [id number] Cecile Rm [id number] Cecile Rm Notes Date Note Type Note Provider Name and Address Organization Details Recorded Time 06/10/2023 text/html states that she is feleing fine. the chol is under conrol the osteopenia is treated has the left si pain taking her vit d. mammo and colo are utd. would like to try prolea Enrique Romeo MD Attn: Accounting,[address] [facility], [place], [address], [facility] [place] 06/10/2023 18:14:00 12/10/2023 text/html states that the si joint injection worked. hte chol is under contorl the hip pain contineus nad is taking hte calcium and vit d the prolea injections for the osteopenia. the colo is utd. mammo is utd Enrique Romeo MD Attn: Accounting,[address] [facility], [place], [address], [facility] 12/10/2023 18:48:55 06/23/2024 text/html states that she is doing good and is taking her meds. yun chol is treated and the osteopenia is treated taking her vit d daily and the oa in the hip is stable Enrique Romeo MD Attn: Accounting,[address] [facility], [place], [address], [facility] 06/23/2024 11:16:30 OBGyn Episode No OBEpisode recorded.
--- OUTSIDE RECORDS SUMMARY | 2024-10-02 09:12 | XMS_ITS | Patient Health Record ---
Author Organization [facility] Address [address] [facility] [address] [place] [address] Care Team Providers Care Spinner Open End Name Role Phone Enrique Romeo MD Primary Care Provider Ashleigh Lilia Lovett Unavailable [phone] Reason For Referral No Information Medications Medication [...] Problem Status W/U Status Risk Notes Problem Acquired hammer toe of right foot ([id number]) Hammertoe of right foot (M20.41) Active confirmed Plan Of Treatment No Information Insurance Providers Payer Name Payer Address Payer Phone Subscriber Number Group Number Insured Name Patient Relationship to Insured Coverage Start Date Coverage End Date [employer] [address] [place] [address] [id number] [phone] Buddy Rm Spouse - patient is the spouse of the insured Medical (General) History Medical History History ICD Code High Cholesterol Surgical History Surgery Date(Month/Year)
== END 2024-10-02 09:07 | disposition home or self-care (01) ==
LOC: ANHIMG 09:09
PROVIDERS: PCP Family Medicine; Visit Provider Family Medicine
DX: Z78.0 Asymptomatic menopausal state (principal); M85.852 Other specified disorders of bone density and structure, left thigh; M85.851 Other specified disorders of bone density and structure, right thigh
CPT/HCPCS: 77080